=== PATIENT | female | born 1935 | race Caucasian/White ===

== ENCOUNTER 2016-08-08 21:57 | Inpatient (IN) | payer OTHER, MEDICARE ==
[~2016-08-08] VITALS: Ht 165.1 cm; Wt 65.8 kg
[~2016-08-08 21:57] MED LIST: KCL20 PO; LEVO75TA3 PO
[2016-08-08 22:00] VITALS: BP 151/67; PULSE 97; RESP 16; TEMP 98.2; O2SAT 97
--- NOTE | 2016-08-08 22:08 | PD ---
Physical Exam Date Seen by Provider: Aug 08, 2016 Time Seen by Provider: 22:04 Narrative 81 YOWF C/O N/V/D BLACK EMESIS AND STOOL. POS ABD PAIN. NO PEPTO. OTC GAVISCON NO DIZZINESS OR SYNCOPE. NO CP OR SOB VSS AWAITING BED PLACEMENT Data Data Last Documented VS Vital Signs Date Time Temp Pulse Resp B/P Pulse Ox O2 Delivery O2 Flow Rate FiO2 08/08/16 22:00 98.2 97 16 151/67 97 Room Air [facility] Medical Record Reviewed: Yes Supervised Visit with CASS: Yes Jorge Chase Aug 08, 2016 22:08
[2016-08-08 22:24] VITALS: BP 145/67; PULSE 89; RESP 18; O2SAT 98
[2016-08-08] MEDS ORDERED: LEVO75TA3 PO (22:26)
[2016-08-08] MEDS ORDERED: HYDR-3583 PO (22:26)
[2016-08-08] MEDS ORDERED: SODIUM CHLORIDE 0.9% FLUSH 10 ML FLUSH IVF PRN (22:30)
[2016-08-08] MEDS ORDERED: PANTOPRAZOLE INJ 80 MG in SODIUM CHLORIDE 0.9% INJ 35 ML IV ONE (22:30)
[2016-08-08] MEDS ORDERED: ONDANSETRON HCL 4 MG/2 ML VIAL IV ONE (22:30)
--- NOTE | 2016-08-08 22:34 | PD ---
HPI Chief Complaint: GI Complaint Time Seen by Provider: 22:30 Travel History International Travel<30 days: No Contact w/Intl Traveler<30days: No Traveled to known affect area: No History of Present Illness HPI Patient with history of pancreatic cancer comes in for evaluation of black emesis and black stools ongoing over the past 4 days. Patient reports she had vomiting 1-2 times a day. Reports her stools are normal other than they're black. Patient states she tried contacting her oncologist, but has not heard back yet. Patient reports that her abdomen is becoming more distended and uncomfortable as well as the pain in her back. Patient states that her pain medication hydrocodone is not helping. Patient denies any chest pain, shortness of breath, dizziness, fevers, or being on any blood thinners. PFSH Past Medical History Cancer: Yes (PANCREATIC) Chemotherapy: Yes Thyroid Disease: Yes Tetanus Vaccination: Unknown Influenza Vaccination: No Menopausal: Yes Past Surgical History Cholecystectomy: Yes Joint Replacement: Yes (BILATERAL KNEE) Social History Alcohol Use: No Tobacco Use: No Substance Use: No Allergies-Medications (Allergen,Severity, Reaction): Coded Allergies: No Known Allergies (Unverified , 08/08/16) Reported Meds & Prescriptions Reported Meds & Active Scripts Active Reported Hydrocodone-Acetaminophen 10-325 mg Tab 1 Tab PO TID PRN Levothyroxine (Levothyroxine Sodium) 75 Mcg Tab 75 Mcg PO DAILY Review of Systems Except as stated in HPI: all other systems reviewed are Neg Physical Exam Narrative GENERAL: Well-developed, well nourished, in no acute distress, and non-ill appearing. SKIN: Focused skin assessment warm and dry. HEAD: Atraumatic. Normocephalic. EYES: Pupils equal and round. EOMI. No scleral icterus. No injection or drainage. ENT: No nasal bleeding or discharge. Mucous membranes pink and moist. NECK: Trachea midline. Supple. No nuclear rigidity. CARDIOVASCULAR: Regular rate and rhythm. No murmur appreciated. RESPIRATORY: No accessory muscle use. No respiratory distress. Clear to auscultation. Breath sounds equal bilaterally. GASTROINTESTINAL: Abdomen soft, tender right upper quadrant and epigastric, distended. Hepatic and splenic margins not palpable. Hypoactive bowel sounds 4. No pulsatile mass. MUSCULOSKELETAL: No obvious deformities. No clubbing. No cyanosis. No edema. Full range of motion. NEUROLOGICAL: Awake and alert. No obvious cranial nerve deficits. Motor grossly within normal limits. Normal speech. PSYCHIATRIC: Appropriate mood and affect; insight and judgment normal. Data Data Last Documented VS Vital Signs Date Time Temp Pulse Resp B/P Pulse Ox O2 Delivery O2 Flow Rate FiO2 08/08/16 22:24 89 18 145/67 98 Room Air 08/08/16 22:00 98.2 MDM Medical Decision Making Medical Screen Exam Complete: Yes Emergency Medical Condition: Yes Differential Diagnosis GI bleed, metastatic disease, small bowel obstruction, ascites, other Narrative Course Patient was seen and exam. Patient signed out to Dr. Parmar at the end of my shift. Please see her documentation for final diagnosis and disposition. Perfecto Schwartz Aug 08, 2016 22:34
--- NOTE | 2016-08-08 22:44 | PD ---
Data Data Last Documented VS Vital Signs Date Time Temp Pulse Resp B/P Pulse Ox O2 Delivery O2 Flow Rate FiO2 08/09/16 02:55 89 16 114/84 96 Room Air 08/08/16 22:00 98.2 Orders Complete Blood Count With Diff (08/08/16 22:27) Comprehensive Metabolic Panel (08/08/16 22:27) Lipase (08/08/16 22:27) Prothrombin Time / Inr (Pt) (08/08/16 22:27) Act Partial Throm Time (Ptt) (08/08/16 22:27) Urinalysis - C+S If Indicated (08/08/16 22:27) Type And Screen (08/08/16 22:27) Red Blood Cells (Rbc) (08/08/16 22:27) Ecg Monitoring (08/08/16 22:27) Iv Access Insert/Monitor (08/08/16 22:27) Oximetry (08/08/16 22:27) Sodium Chloride 0.9% Flush (Ns Flush) (08/08/16 22:30) Pantoprazole Inj (Protonix Inj) (08/08/16 22:30) Pantoprazole Inj (Protonix Inj) (08/08/16 22:30) Lactic Acid Sepsis Protocol (08/08/16 22:27) Ondansetron Inj (Zofran Inj) (08/08/16 22:30) B-Type Natriuretic Peptide (08/08/16 22:32) Chest, Single Ap (08/08/16 22:32) Ct Abd/Pel W Iv Contrast(Rout) (08/08/16 22:32) Ckmb (Isoenzyme) Profile (08/08/16 22:30) Troponin I (08/08/16 22:30) Metoclopramide Inj (Reglan Inj) (08/08/16 23:45) Hydromorphone Pf Inj (Dilaudid Pf Inj) (08/08/16 23:45) Iohexol 350 Inj (Omnipaque 350 Inj) (08/09/16 00:14) Admit Order (Ed Use Only) (08/09/16 03:38) Labs Laboratory Tests Test 08/08/16 08/08/16 22:30 23:39 White Blood Count 6.3 TH/MM3 Red Blood Count 2.73 MIL/MM3 Hemoglobin 8.2 GM/DL Hematocrit 24.0 % Mean Corpuscular Volume 88.1 FL Mean Corpuscular Hemoglobin 29.9 PG Mean Corpuscular Hemoglobin 33.9 % Concent Red Cell Distribution Width 17.1 % Platelet Count 369 TH/MM3 Mean Platelet Volume 8.0 FL Neutrophils (%) (Auto) 75.7 % Lymphocytes (%) (Auto) 11.8 % Monocytes (%) (Auto) 11.5 % Eosinophils (%) (Auto) 0.6 % Basophils (%) (Auto) 0.4 % Neutrophils # (Auto) 4.8 TH/MM3 Lymphocytes # (Auto) 0.7 TH/MM3 Monocytes # (Auto) 0.7 TH/MM3 Eosinophils # (Auto) 0.0 TH/MM3 Basophils # (Auto) 0.0 TH/MM3 CBC Comment DIFF FINAL Differential Comment Prothrombin Time 12.7 SEC Prothromb Time International 1.1 RATIO Ratio Activated Partial 27.5 SEC Thromboplast Time Sodium Level 136 MEQ/L Potassium Level 3.4 MEQ/L Chloride Level 98 MEQ/L Carbon Dioxide Level 27.0 MEQ/L Anion Gap 11 MEQ/L Blood Urea Nitrogen 16 MG/DL Creatinine 0.52 MG/DL Estimat Glomerular Filtration 113 ML/MIN Rate Random Glucose 92 MG/DL Lactic Acid Level 1.2 mmol/L Calcium Level 8.0 MG/DL Total Bilirubin 0.7 MG/DL Aspartate Amino Transf 27 U/L (AST/SGOT) Alanine Aminotransferase 18 U/L (ALT/SGPT) Alkaline Phosphatase 273 U/L Total Creatine Kinase 36 U/L Troponin I LESS THAN 0.02 NG/ML Total Protein 6.3 GM/DL Albumin 2.4 GM/DL Lipase 77 U/L B-Type Natriuretic Peptide 124 PG/ML Blood Type A NEGATIVE A NEGATIVE Antibody Screen NEGATIVE Crossmatch Leukocyte-Reduced Red Blood Cells Blood Bank Comment [facility] Medical Record Reviewed: Yes Supervised Visit with CASS: No Interpretation(s) Last Impressions Chest X-Ray 08/08/162231 Signed Impressions: Service Date/Time: Monday, August 08, 2016 22:32 - CONCLUSION: Small left pleural effusion with left lower lobe atelectasis versus infiltrate. Jarad Ceja Jr., MD Abdomen/Pelvis CT 08/08/162231 Signed Impressions: Service Date/Time: Monday, August 08, 2016 23:59 - CONCLUSION: 1. Large pancreatic head mass. There is a common bile duct stent which is patent. Intrahepatic ductal dilatation with pneumobilia. I have no prior exams to account for any change following the stent placement. 2. Moderate amount of ascites. 3. Small left pleural effusion with associated atelectasis. 4. Large hiatal hernia. 5. Cardiomegaly. Jarad Ceja Jr., MD Narrative Course During the course of the patients emergency department visit, the patients history, examination, and differential diagnosis were reviewed with the patient. The patient had IV access obtained and blood work sent for analysis. The patient was placed on a media monitor with oximetry and blood pressure monitoring. The patient was initially seen by Gilbert. Please see his complete history and physical. The patient's case was checked out to me by him of the conclusion of his shift. The patient reportedly on Sunday began to have nausea and vomiting of black emesis twice a day. Since then she has also had normal consistency black stools. Her medical history is complicated by having pancreatic cancer that is continued to progress in spite of treatment. The patient was typed and crossmatched for blood administration if necessary. The patient was provided Protonix 80 IV followed by Protonix drip. The patients laboratory studies were reviewed and remarkable for white count 6.3, hemoglobin 8.2, platelets 369 with 75.7 neutrophils, monocytes 11.5, CMP is remarkable for potassium of 3.4, calcium 8.0, alkaline phosphatase 273, cardiac enzymes within normal limits, lipase 77, lactic acid 1.2, PT 12.7, PTT 27.5. Radiology studies were reviewed and remarkable for a chest x-ray that shows a small left pleural effusion with left lower lobe atelectasis, CT scan of the abdomen and pelvis shows a large pancreatic head mass there is a common bile duct stent just patent, intrahepatic ductal dilatation with pneumobilia is noted , moderate amount of ascites, small left pleural effusion with associated atelectasis, large hiatal hernia, cardiomegaly. The patient will be admitted to the hospital for evaluation and treatment regarding a GI bleed. The patients results were discussed with the patient, including the plan of care. I explained that further testing and/ or monitoring is indicated based on the patients history, examination, and/ or laboratory findings. Therefore, I recommended admission for additional evaluation. The patient expressed understanding and was agreeable with this plan. The patient was admitted to the hospital in guarded condition and [facility] Physician Communication Physician Communication The patient's case was discussed with Dr. Loyd who did agree to admit the patient for further evaluation and treatment at this time. Diagnosis Primary Impression: Gastrointestinal bleed Qualified Code: K92.2 - Gastrointestinal hemorrhage, unspecified gastrointestinal hemorrhage type Additional Impression: Pancreatic cancer Qualified Code: C25.9 - Malignant neoplasm of pancreas, unspecified location of malignancy Admitting Information Admitting Physician Requests: Marie Matthew MD Aug 08, 2016 22:44
[2016-08-08 22:55] LABS: AUTOMATED NEUTROPHIL # 4.8 TH/MM3 (1.8-7.7); BASOPHIL % 0.4 % (0.0-2.0); EOSINOPHIL % 0.6 % (0.0-4.0); HEMO FLAGS DIFF FINAL; LYMPH % 11.8 % (9.0-44.0); LYMPHOCYTE # 0.7 TH/MM3 (1.0-4.8); MEAN CELL VOLUME 88.1 FL (80.0-100.0); MEAN CORPUSCULAR HEMOGLOBIN 29.9 PG (27.0-34.0); MEAN CORPUSCULAR HGB CONC 33.9 % (32.0-36.0); MONO % 11.5 % (0.0-8.0); NEUT % 75.7 % (16.0-70.0); PLATELET COUNT 369 TH/MM3 (150-450); RED BLOOD COUNT 2.73 MIL/MM3 (4.00-5.30); RED CELL DISTRIBUTION WIDTH 17.1 % (11.6-17.2); WHITE BLOOD COUNT 6.3 TH/MM3 (4.0-11.0)
[2016-08-08 23:00] VITALS: BP 139/65; PULSE 76; RESP 16; O2SAT 96
--- NOTE | 2016-08-08 23:02 | RADRPT ---
EXAM DATE/TIME: 08/08/2016 22:32 [facility] COMPARISON: No previous studies available for comparison. INDICATIONS : Nausea, vomiting. MEDICAL HISTORY : Carcinoma, pancreas. SURGICAL HISTORY : Cholecystectomy. ENCOUNTER: Initial ACUITY: 4 - 6 days PAIN SCORE: 0/10 LOCATION: Bilateral chest FINDINGS: A single portable frontal view of the chest shows a small left pleural effusion and left lower lobe c onsolidation. Right lung is clear. No right effusion. Heart is normal in size. Bony structures are un remarkable. CONCLUSION: Small left pleural effusion with left lower lobe atelectasis versus infiltrate. Jarad Ceja Jr., MD on August 08, 2016 at 23:00 Board Certified Radiologist. This report was verified electronically.
[2016-08-08 23:17] LABS: ALT (GPT) 18 U/L (10-53); ANION GAP 11 MEQ/L (5-15); AST (GOT) 27 U/L (15-37); BLOOD UREA NITROGEN 16 MG/DL (7-18); CHLORIDE 98 MEQ/L (98-107); GLOMERULAR FILTRATION RATE 113 ML/MIN (>89); POTASSIUM 3.4 MEQ/L (3.5-5.1); SODIUM (NA) 136 MEQ/L (136-145)
[2016-08-08 23:18] LABS: APTT (PATIENT) 27.5 SEC (24.3-30.1); INTERNATIONAL NORMALIZED RATIO 1.1 RATIO; PROTHROMBIN TIME - PATIENT 12.7 SEC (9.8-11.6)
[2016-08-08] MEDS: PANTOPRAZOLE INJ 80 MG in SODIUM CHLORIDE 0.9% INJ 100 ML IV SCH (23:18)
[2016-08-08 23:20] LABS: ALKALINE PHOSPHATASE 273 U/L (45-117); TOTAL BILIRUBIN ADULT 0.7 MG/DL (0.2-1.0)
[2016-08-08 23:28] LABS: CREATINE KINASE 36 U/L (26-192)
[2016-08-08] MEDS ORDERED: HYDROmorphone HCL PF 1 MG/ML VIAL IV PUSH ONE (23:45)
[2016-08-08] MEDS ORDERED: METOCLOPRAMIDE HCL 10 MG/2 ML VIAL IV PUSH ONE (23:45)
[2016-08-09] VITALS (9 sets, daily range): BP systolic 112–148; BP diastolic 55–86; PULSE 83–108; RESP 16–18; TEMP 96.4–98.4; O2SAT 94–98
[2016-08-09] MEDS ORDERED: IOHEXOL 350 MG/ML 10 ML VIAL (for RAD DIAG) IV ONE (00:14)
--- NOTE | 2016-08-09 00:37 | RADRPT ---
EXAM DATE/TIME: 08/08/2016 23:59 [facility] COMPARISON: No previous studies available for comparison. INDICATIONS : Black emesis and black stool for four days. IV CONTRAST: 90 cc Omnipaque 350 (iohexol) IV ORAL CONTRAST: No oral contrast ingested. RADIATION DOSE: 10.08 CTDIvol (mGy) MEDICAL HISTORY : Carcinoma, pancreas. SURGICAL HISTORY : None. ENCOUNTER: Initial ACUITY: 4 - 6 days PAIN SCALE: 4/10 LOCATION: Abdomen. TECHNIQUE: Volumetric scanning of the abdomen and pelvis was performed. Using automated exposure control and ad justment of the mA and/or kV according to patient size, radiation dose was kept as low as reasonably achievable to obtain optimal diagnostic quality images. FINDINGS: LOWER LUNGS: A small left pleural effusion with associated passive atelectasis. No effusion on the right. The hear t is enlarged. A moderate size hiatal hernia noted. LIVER: Diffuse intrahepatic and extrahepatic biliary dilatation. There is diffuse pneumobilia. A metallic st ent is seen within the common bile duct. There is air throughout the majority of the stent consistent with patency. No hepatic mass observed. 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 A moderate amount of ascites is seen. SPLEEN: Normal size without lesion. PANCREAS: The pancreatic head is enlarged and abnormal in density. Pancreatic duct is dilated in the tail is at rophic. Exact measurement of the pancreatic head mass are difficult due to obscuration of its borders . It is felt to measure approximately 5 x 3.5 cm. KIDNEYS: Normal in size and shape. There is no mass, stone or hydronephrosis. ADRENAL GLANDS: Within normal limits. VASCULAR: There is no aortic aneurysm. BOWEL/MESENTERY: The stomach, small bowel, and colon demonstrate no acute abnormality. There is no free intraperitone al air or fluid. ABDOMINAL WALL: Within normal limits. RETROPERITONEUM: There is no lymphadenopathy. BLADDER: No wall thickening or mass. REPRODUCTIVE: Within normal limits. INGUINAL: There is no lymphadenopathy or hernia. MUSCULOSKELETAL: Within normal limits for patient age. CONCLUSION: 1. Large pancreatic head mass. There is a common bile duct stent which is patent. Intrahepatic ductal dilatation with pneumobilia. I have no prior exams to account for any change following the stent bettina cement. 2. Moderate amount of ascites. 3. Small left pleural effusion with associated atelectasis. 4. Large hiatal hernia. 5. Cardiomegaly. Jarad Ceja Jr., MD on August 09, 2016 at 0:31 Board Certified Radiologist. This report was verified electronically.
[2016-08-09] MEDS ORDERED: POTASSIUM CHLORIDE INJ 20 MEQ in SODIUM CHLOR 0.9% 1000 ML INJ 1,000 ML IV SCH (03:45)
[2016-08-09] MEDS: NS + KCL 20 MEQ INJ 1,000 ML IV SCH ×2 (04:20→16:40)
[2016-08-09 04:29] LABS: HEMATOCRIT 21.2 % (35.0-46.0)
--- NOTE | 2016-08-09 04:55 | HHI.HP ---
[facility] Service [facility] Primary Care Physician Aleisha Saavedra MD Admission Diagnosis GI Bleed Diagnoses: (1) Nausea and vomiting (2) Abdominal pain (3) Gastrointestinal bleed Chief Complaint: Abdominal pain with nausea and vomiting and black emesis Travel History International Travel<30 Days: No Contact w/Intl Traveler <30 Da: No Traveled to Known Affected Are: No History of Present Illness Mrs. Garner is an 81-year-old female with a history of hypothyroidism and pancreatic cancer who presented to the emergency room for 08/24/16 complaining of abdominal pain as well as nausea and vomiting with black emesis. The patient is seen in the emergency room. She states that she started to have increasing abdominal pain with nausea and vomiting and black emesis starting on Sunday. She states that her PRN hydrocodone usually relieves her pain but stopped working. She states the pain is across her upper abdomen and radiates to her back. Her last episode of emesis was last night. She has never had symptoms like this previously. She also reports bowel movements as black in color 2 and they changed in consistency to loose yesterday. She denies any associated dizziness, chest pain, shortness of breath, or lightheadedness. She denies any history of gastric ulcers. She sees Dr. Mcrae for pancreatic cancer that was diagnosed in 2013. She had been previously seen by Dr. Kilgore. Her pancreatic cancer was first diagnosed in 2013 and she is had a laparoscopy - Whipple procedure was attempted but aborted because of advanced disease found during laparoscopy. She has had chemotherapy and radiation with her last chemotherapy in 2013 and her last radiation treatment in 2014 She reports a history of chills following blood transfusion in the past . Review of Systems Except as stated in HPI: all other systems reviewed are Neg Past Family Social History Past Medical History Hypothyroidism Pancreatic cancer . Past Surgical History ERCP with biliary stenting 2013 Cataract removal 2009 Bilateral knee surgery 2005 Laparoscopy 2014 for pancreatic cancer - Whipple procedure was terminated due to advanced cancer seen during laparoscopy . Reported Medications Reported Meds & Active Scripts Active Reported Hydrocodone-Acetaminophen 10-325 mg Tab 1 Tab PO TID PRN Levothyroxine (Levothyroxine Sodium) 75 Mcg Tab 75 Mcg PO DAILY . Allergies: Coded Allergies: No Known Allergies (Unverified , 08/08/16) Active Ordered Medications Current Medications Sodium Chloride 2 ml 2 ml UNSCH PRN IVF FLUSH AFTER USING IV ACCESS Last administered on 08/08/16 23:12; Start 08/08/16 at 22:30 Pantoprazole Sodium 80 mg/ Sodium Chloride 35 ml @ 420 mls/hr ONCE ONCE IV Last administered on 08/08/16 23:11; Start 08/08/16 at 22:30; Stop 08/08/16 at 22: 34; Status DC Pantoprazole Sodium/Sodium Chloride (Protonix Inj/NS Inj) 100 ml @ 10 mls/hr Q10H IV Last administered on 08/08/16 23:18; Start 08/08/16 at 22:30 Ondansetron HCl (Zofran Inj) 4 mg ONCE ONCE IV Last administered on 08/08/16 23:11; Start 08/08/16 at 22:30; Stop 08/08/16 at 22:31; Status DC Metoclopramide HCl (Reglan Inj) 5 mg ONCE ONCE IV PUSH Last administered on 23:49; Start 08/08/16 at 23:45; Stop 08/08/16 at 23:46; Status DC Hydromorphone HCl (Dilaudid Pf Inj) 0.2 mg ONCE ONCE IV PUSH Last administered on 08/08/16 23:49; Start 08/08/16 at 23:45; Stop 08/08/16 at 23:46; Status DC Iohexol 90 ml 90 ml STK-MED ONCE IV Last administered on 08/09/16 00:14; Start 08/09/16 at 00:14; Stop 08/09/16 at 00:15; Status DC Potassium Chloride 20 meq/ Sodium Chloride 1,010 ml @ 75 mls/hr [id number] IV ; Start 08/09/16 at 03:45; Stop 08/09/16 at 05:59 Potassium Chloride/Sodium Chloride (NS + KCl 20 Meq Inj) 1,000 ml @ 75 mls/hr [id number] IV Last administered on 08/09/16 04:20; Start 08/09/16 at 06:00 Hydromorphone HCl (Dilaudid Pf Inj) 0.5 mg Q4H PRN IV PUSH PAIN; Start 08/09/16 at 04:30 . Family History Father age 78 of bone cancer . Social History Tobacco: remote smoking in her 20's . Physical Exam Vital Signs Vital Signs Date Time Temp Pulse Resp B/P Pulse Ox O2 Delivery O2 Flow Rate FiO2 08/09/16 04:00 83 16 132/60 94 Room Air 08/09/16 02:55 89 16 114/84 96 Room Air 08/08/16 23:00 76 16 139/65 96 Room Air 08/08/16 22:24 89 18 145/67 98 Room Air 08/08/16 22:00 98.2 97 16 151/67 97 Room Air Physical Exam GENERAL: This is a thin, pleasant, elderly female patient, in no apparent distress. SKIN: No rashes, ecchymoses or lesions. Cool and dry. HEAD: Atraumatic. Normocephalic. EYES: No scleral icterus. No injection or drainage. ENT: Nose without bleeding, purulent drainage. NECK: Trachea midline. No JVD or lymphadenopathy. CARDIOVASCULAR: Regular rate and rhythm without murmurs, gallops, or rubs. Patient has 2+ ankle edema, pitting RESPIRATORY: Clear to auscultation. Breath sounds equal bilaterally. No wheezes , rales, or rhonchi. GASTROINTESTINAL: Abdominal pain with palpation, epigastric mass palpable, nondistended. No guarding. MUSCULOSKELETAL: Extremities without clubbing, cyanosis, or edema. No calf tenderness. NEUROLOGICAL: Awake and alert. Motor and sensory grossly within normal limits. Normal speech. . Laboratory Laboratory Tests Test 08/08/16 08/08/16 08/09/16 22:30 23:39 04:10 White Blood Count 6.3 Red Blood Count 2.73 Hemoglobin 8.2 7.2 Hematocrit 24.0 21.2 Mean Corpuscular Volume 88.1 Mean Corpuscular Hemoglobin 29.9 Mean Corpuscular Hemoglobin 33.9 Concent Red Cell Distribution Width 17.1 Platelet Count 369 Mean Platelet Volume 8.0 Neutrophils (%) (Auto) 75.7 Lymphocytes (%) (Auto) 11.8 Monocytes (%) (Auto) 11.5 Eosinophils (%) (Auto) 0.6 Basophils (%) (Auto) 0.4 Neutrophils # (Auto) 4.8 Lymphocytes # (Auto) 0.7 Monocytes # (Auto) 0.7 Eosinophils # (Auto) 0.0 Basophils # (Auto) 0.0 CBC Comment DIFF FINAL Differential Comment Prothrombin Time 12.7 Prothromb Time International 1.1 Ratio Activated Partial 27.5 Thromboplast Time Sodium Level 136 Potassium Level 3.4 Chloride Level 98 Carbon Dioxide Level 27.0 Anion Gap 11 Blood Urea Nitrogen 16 Creatinine 0.52 Estimat Glomerular Filtration 113 Rate Random Glucose 92 Lactic Acid Level 1.2 Calcium Level 8.0 Total Bilirubin 0.7 Aspartate Amino Transf 27 (AST/SGOT) Alanine Aminotransferase 18 (ALT/SGPT) Alkaline Phosphatase 273 Total Creatine Kinase 36 Troponin I LESS THAN 0.02 Total Protein 6.3 Albumin 2.4 Lipase 77 B-Type Natriuretic Peptide 124 Blood Type A NEGATIVE A NEGATIVE Antibody Screen NEGATIVE Crossmatch Leukocyte-Reduced Red Blood Cells Blood Bank Comment Result Diagram: 08/09/16 0410 08/08/162229 Imaging Last Impressions Chest X-Ray 08/08/162231 Signed Impressions: Service Date/Time: Monday, August 08, 2016 22:32 - CONCLUSION: Small left pleural effusion with left lower lobe atelectasis versus infiltrate. Jarad Ceja Jr., MD Abdomen/Pelvis CT 08/08/162231 Signed Impressions: Service Date/Time: Monday, August 08, 2016 23:59 - CONCLUSION: 1. Large pancreatic head mass. There is a common bile duct stent which is patent. Intrahepatic ductal dilatation with pneumobilia. I have no prior exams to account for any change following the stent placement. 2. Moderate amount of ascites. 3. Small left pleural effusion with associated atelectasis. 4. Large hiatal hernia. 5. Cardiomegaly. Jarad Ceja Jr., MD . Assessment and Plan Problem List: (1) Gastrointestinal bleed ICD Code: K92.2 Status: Acute (2) Abdominal pain ICD Code: R10.9 Status: Acute (3) Nausea and vomiting ICD Code: R11.2 Status: Acute (4) Pancreatic cancer ICD Code: C25.9 Status: Acute Assessment and Plan Mrs. Garner is an 81-year-old female with a history of hypothyroidism and pancreatic cancer who presented to the emergency room for 08/24/16 complaining of abdominal pain as well as nausea and vomiting with black emesis. Suspected GI bleed - Protonix drip to reduce gastric acid - Consult gastroenterology - Serial H&H every 6 hours - follow trends - Monitor vital signs every 4 hours to monitor hemodynamic stability - Hemoglobin was 8.2 on admission last night and 7.2 this morning; transfuse 1 unit of packed red blood cells with premedication with Tylenol and Benadryl Abdominal pain Pancreatic cancer - Dilaudid 0.5 mg IV every 4 hours as needed for pain Nausea and vomiting - IV fluid hydration with normal saline + 20 mEq of potassium chloride at 75 cc per hour - Zofran 4 mg IV every 8 hours as needed for nausea and vomiting DVT prophylaxis - SCDs Written by Brooklynn Sheth, acting as scribe for Dr. Loyd on 08/09/16 at 04:51. patient was seen and examined today. 81 y/o female with history of pancreatic cancer who presented with coffee- ground emesis and abdominal pain. noted a drop in H/H. started on PPI- will transfuse with PRBC and monitor the H/H closely. consulted GI. continue with pain control. Discussed Condition With ER physician, patient, and patient's . Physician Certification 2 Midnight Certification Type: Admission for Inpatient Services Order for Inpatient Services The services are ordered in accordance with Medicare regulations or non- Medicare payer requirements, as applicable. In the case of services not specified as inpatient-only, they are appropriately provided as inpatient services in accordance with the 2-midnight benchmark. Estimated LOS (days): 3 days is the estimated time the patient will need to remain in the hospital, assuming treatment plan goals are met and no additional complications. Post-Hospital Plan: Not yet determined Problem Qualifiers (1) Gastrointestinal bleed: Qualified Code: K92.2 - Gastrointestinal hemorrhage, unspecified gastrointestinal hemorrhage type (2) Pancreatic cancer: Qualified Code: C25.9 - Malignant neoplasm of pancreas, unspecified location of malignancy Brooklynn Sheth Aug 09, 2016 04:55 Amelie Loyd MD Aug 09, 2016 05:33
[2016-08-09] MEDS ORDERED: diphenhydrAMINE HCL 25 MG CAP PO ONE (05:00)
[2016-08-09] MEDS: HYDROmorphone HCL PF 1 MG/ML VIAL IV PUSH PRN ×4 (05:00→23:51)
[2016-08-09] MEDS ORDERED: ACETAMINOPHEN 325 MG TAB PO ONE (05:00)
--- NOTE | 2016-08-09 09:51 | HHI.PR ---
Addendum to Inpatient Note Addendum Reason: Additional Documentation Additional Information Pt evaluated today. Complains of pain in abdomen 5/10 and would like some pain meds. Denies any new episode of dark stools or bleed. no nausea or vomiting this morning. family at bedside. concerned about pain and hope she can get something soon abdominal exam, soft tender in epigastric region and mass is palpated in that area, non tender in the lower quadrants. no guarding or rebound A/P Suspected GI bleed - on Protonix drip. Gastroenterology consult in place. - Serial H&H every 6 hours - follow trends s/p 1 unit PRBC - Monitor vital signs every 4 hours to monitor hemodynamic stability Abdominal pain Pancreatic cancer - Dilaudid 0.5 mg IV every 4 hours as needed for breakthrough pain and I have restarted her home pain med regimen Nausea and vomiting - resolved. continue IV fluid hydration with normal saline w potassium chloride at 75 cc per hour - Zofran 4 mg IV every 8 hours as needed for nausea and vomiting DVT prophylaxis - SCDs, avoid chemical prophylaxis due to GI bleed Giselle Schneider MD Aug 09, 2016 09:51
[2016-08-09] MEDS ORDERED: DOCUSATE SODIUM 50 MG/SENNA 8.6 MG TAB PO PRN (10:00)
[2016-08-09] MEDS: PANTOPRAZOLE INJ 80 MG in SODIUM CHLORIDE 0.9% INJ 100 ML IV SCH ×2 (10:20→20:41)
[2016-08-09] MEDS: ACETAMINOPHEN/HYDROcodone 325 MG/10 MG TAB PO PRN ×2 (10:31→18:23)
[2016-08-09] MEDS: ONDANSETRON HCL 4 MG/2 ML VIAL IV PUSH PRN (10:33)
[2016-08-09 11:18] LABS: HEMATOCRIT 30.1 % (35.0-46.0)
--- NOTE | 2016-08-09 15:46 | PD.CONS ---
HPI History of Present Illness This is a 81 year old [lady] who came to the hospital yesterday after having multilple episodes of nausea and coffee ground emesis in the last week. She is unsure of when it started but says it is in the last week. She has never experienced this before. She has not vomited today and is not nauseous at this time. She has some RUQ and epigastric pain. She has had black tarry stools in the last week as well. She has pancreatic cancer, s/p unsuccessful whipple. She said she has [CBD] stent in place, placed by a clinical informatics educator in [place]. She does not currently drink ETOH and denies any hx heavy drinking. She has never had an EGD or colonoscopy. (Gabby Montgomery) PFSH Past Medical History Hypothyroidism Pancreatic cancer . Past Surgical History ERCP with biliary stenting 2013 Cataract removal 2009 Bilateral knee surgery 2005 Laparoscopy 2014 for pancreatic cancer - Whipple procedure was terminated due to advanced cancer seen during laparoscopy . (Gabby Montgomery) Coded Allergies: No Known Allergies (Unverified , 08/08/16) Medications Current Medications Medications (Trade) Dose Ordered Sig/Estuardo Route PRN Reason Start Time Stop Time Status Last Admin Dose Admin Sodium Chloride 2 ml 2 ml UNSCH PRN IVF FLUSH AFTER USING IV ACCESS 08/08/16 22:30 08/08/16 23:12 Pantoprazole Sodium 80 mg/ Sodium Chloride 100 ml @ 10 mls/hr Q10H IV 08/08/16 22:30 08/09/16 10:20 Potassium Chloride/Sodium Chloride (NS + KCl 20 Meq Inj) 1,000 ml @ 75 mls/hr [id number] IV 08/09/16 06:00 08/09/16 04:20 Hydromorphone HCl (Dilaudid Pf Inj) 0.5 mg Q4H PRN IV PUSH BREAKTHROUGH PAIN 08/09/16 04:30 08/09/16 15:15 Ondansetron HCl (Zofran Inj) 4 mg Q8HR PRN IV PUSH NAUSEA 08/09/16 05:45 08/09/16 10:33 Acetaminophen/ Hydrocodone Bitart (Chandler 10-325 Mg) 1 tab TID PRN PO PAIN 1-10 08/09/16 10:00 08/09/16 10:31 Senna/Docusate Sodium (Tati-Colace) 1 tab BID PRN PO CONSTIPATION 08/09/16 10:00 Family History No family hx gastric or colon ca . Social History Rare ETOH and not recent. No current tobacco use. . (Gabby Montgomery) Review of Systems Constitutional: DENIES: Fever, Dizziness Eyes: DENIES: Blurred vision Ears, nose, mouth, throat: DENIES: Hearing loss Respiratory: DENIES: Cough, Wheezing Cardiovascular: COMPLAINS OF: Lower Extremity Edema, DENIES: Chest pain Gastrointestinal: COMPLAINS OF: Abdominal pain, Black stools, Nausea, Vomiting , Hematemesis, DENIES: Bloody stools, Constipation, Diarrhea Musculoskeletal: DENIES: Joint pain Integumentary: DENIES: Abnormal pigmentation Hematologic/lymphatic: DENIES: Bruising Neurologic: DENIES: Abnormal gait Psychiatric: DENIES: Confusion (Gabby Montgomery) GI Exam Vitals I&O Vital Signs Date Time Temp Pulse Resp B/P Pulse Ox O2 Delivery O2 Flow Rate FiO2 08/09/16 12:00 96.9 101 18 136/70 97 08/09/16 08:00 96.4 91 18 130/68 98 08/09/16 07:05 96.7 98 16 148/86 98 08/09/16 06:20 96 16 114/55 94 Room Air 08/09/16 06:05 98.4 92 16 112/56 94 Room Air 08/09/16 04:00 83 16 132/60 94 Room Air 08/09/16 02:55 89 16 114/84 96 Room Air 08/08/16 23:00 76 16 139/65 96 Room Air 08/08/16 22:24 89 18 145/67 98 Room Air 08/08/16 22:00 98.2 97 16 151/67 97 Room Air I/O 08/08/16 08/08/16 08/08/16 08/09/16 08/09/16 08/09/16 07:00 15:00 23:00 07:00 15:00 23:00 Intake Total 804 ml Balance 804 ml Intake IV Total 804 ml Imaging Last Impressions Chest X-Ray 08/08/16 7372 Signed Impressions: Service Date/Time: Monday, August 08, 2016 22:32 - CONCLUSION: Small left pleural effusion with left lower lobe atelectasis versus infiltrate. Jarad Ceja Jr., MD Abdomen/Pelvis CT 08/08/164 Signed Impressions: Service Date/Time: Monday, August 08, 2016 23:59 - CONCLUSION: 1. Large pancreatic head mass. There is a common bile duct stent which is patent. Intrahepatic ductal dilatation with pneumobilia. I have no prior exams to account for any change following the stent placement. 2. Moderate amount of ascites. 3. Small left pleural effusion with associated atelectasis. 4. Large hiatal hernia. 5. Cardiomegaly. Jarad Ceja Jr., MD Laboratory Test 08/08/16 08/08/16 08/09/16 08/09/16 22:30 23:39 04:10 11:04 White Blood Count 6.3 TH/MM3 Red Blood Count 2.73 MIL/MM3 Hemoglobin 8.2 GM/DL 7.2 GM/DL 9.8 GM/DL Hematocrit 24.0 % 21.2 % 30.1 % Mean Corpuscular Volume 88.1 FL Mean Corpuscular Hemoglobin 29.9 PG Mean Corpuscular Hemoglobin 33.9 % Concent Red Cell Distribution Width 17.1 % Platelet Count 369 TH/MM3 Mean Platelet Volume 8.0 FL Neutrophils (%) (Auto) 75.7 % Lymphocytes (%) (Auto) 11.8 % Monocytes (%) (Auto) 11.5 % Eosinophils (%) (Auto) 0.6 % Basophils (%) (Auto) 0.4 % Neutrophils # (Auto) 4.8 TH/MM3 Lymphocytes # (Auto) 0.7 TH/MM3 Monocytes # (Auto) 0.7 TH/MM3 Eosinophils # (Auto) 0.0 TH/MM3 Basophils # (Auto) 0.0 TH/MM3 CBC Comment DIFF FINAL Differential Comment Prothrombin Time 12.7 SEC Prothromb Time International 1.1 RATIO Ratio Activated Partial 27.5 SEC Thromboplast Time Sodium Level 136 MEQ/L Potassium Level 3.4 MEQ/L Chloride Level 98 MEQ/L Carbon Dioxide Level 27.0 MEQ/L Anion Gap 11 MEQ/L Blood Urea Nitrogen 16 MG/DL Creatinine 0.52 MG/DL Estimat Glomerular Filtration 113 ML/MIN Rate Random Glucose 92 MG/DL Lactic Acid Level 1.2 mmol/L Calcium Level 8.0 MG/DL Total Bilirubin 0.7 MG/DL Aspartate Amino Transf 27 U/L (AST/SGOT) Alanine Aminotransferase 18 U/L (ALT/SGPT) Alkaline Phosphatase 273 U/L Total Creatine Kinase 36 U/L Troponin I LESS THAN 0.02 NG/ML Total Protein 6.3 GM/DL Albumin 2.4 GM/DL Lipase 77 U/L B-Type Natriuretic Peptide 124 PG/ML Blood Type A NEGATIVE A NEGATIVE Antibody Screen NEGATIVE Crossmatch Leukocyte-Reduced Red Blood Cells Blood Bank Comment Physical Examination HEENT: EOMI; normocephalic; atraumatic; no jaundice. NECK: Neck is supple, no JVD CHEST: Chest is clear to auscultation and percussion. CARDIAC: Regular rate and rhythm with no murmur gallop or rubs. ABDOMEN: firm, nondistended, mild epigastric TTP; no hepatosplenomegaly; bowel sounds are present in all four quadrants. EXTREMITIES: No clubbing, cyanosis. 1+ pitting edema BLE SKIN: Normal; no rash; no jaundice. VOLLEYBALL REFEREE: No focal deficits; alert and oriented times three. (Gabby Montgomery) Assessment and Plan Plan ASSESSMENT: - probably upper GI bleed, hematemesis with coffee ground appearance, melena. Never had EGD or colonoscopy. - Anemia. HH stable, Hgb 9.8 up from 8.2 yesterday - pancreatic cancer, epigastric and RUQ pain. CT 08/09/16 ----> large pancreatic head mass, CBD stent which is patent, intrahepatic ductal dilatation with pneumobilia, moderate ascites PLAN: - EGD tomorrow - clear liquids now - NPO after midnight - obtain consents - monitor HH - transfuse as necessary This pt was seen by myself and Dr. Jackson and this note is written on his behalf (Gabby Montgomery) Physician Comments Seen and examined with TAYLOR, EGD planned for tomorrow. Previous h/o pancreatic cancer noted. No signs of biliary obstruction. Monitor labs. Thank you (Fede Jackson MD) Gabby Montgomery Aug 09, 2016 15:46 Fede Jackson MD Aug 09, 2016 20:09
[2016-08-09 16:15] LABS: HEMATOCRIT 26.5 % (35.0-46.0)
[2016-08-09] MEDS ORDERED: diphenhydrAMINE HCL 50 MG CAP PO PRN (23:45)
[2016-08-09] MEDS: diphenhydrAMINE HCL 25 MG CAP PO PRN (23:51)
[2016-08-10] VITALS (7 sets, daily range): BP systolic 128–156; BP diastolic 70–86; PULSE 87–106; RESP 16–20; TEMP 96.7–98.3; O2SAT 91–97
[2016-08-10] MEDS: PANTOPRAZOLE INJ 80 MG in SODIUM CHLORIDE 0.9% INJ 100 ML IV SCH ×2 (04:37→21:34)
[2016-08-10] MEDS: ACETAMINOPHEN/HYDROcodone 325 MG/10 MG TAB PO PRN ×3 (04:38→23:31)
[2016-08-10] MEDS: NS + KCL 20 MEQ INJ 1,000 ML IV SCH ×2 (08:40→21:34)
--- NOTE | 2016-08-10 09:22 | HHI.PR ---
Subjective Remarks Patient complains of epigastric pain. She rates it a 4 out of 10 and would like pain medication for it. She denies any nausea or vomiting, chest pain or shortness of breath. Family at bedside. Objective Vitals Vital Signs Date Time Temp Pulse Resp B/P Pulse Ox O2 Delivery O2 Flow Rate FiO2 08/10/16 07:50 97.9 104 20 128/71 91 08/10/16 04:00 98.3 97 16 149/82 92 08/10/16 00:00 97.3 106 16 138/80 93 08/09/16 20:00 98.0 108 16 137/69 94 08/09/16 16:00 97.1 102 18 125/71 96 08/09/16 12:00 96.9 101 18 136/70 97 I/O 08/09/16 08/09/16 08/09/16 08/10/16 08/10/16 08/10/16 07:00 15:00 23:00 07:00 15:00 23:00 Intake Total 804 ml 252 ml 0 ml Balance 804 ml 252 ml 0 ml Intake Oral 252 ml 0 ml IV Total 804 ml # Voids 1 1 # Bowel Movements 0 0 Result Diagram: 08/09/16 1551 08/08/162229 Imaging Last Impressions Chest X-Ray 08/08/162231 Signed Impressions: Service Date/Time: Monday, August 08, 2016 22:32 - CONCLUSION: Small left pleural effusion with left lower lobe atelectasis versus infiltrate. Jarad Ceja Jr., MD Abdomen/Pelvis CT 08/08/162231 Signed Impressions: Service Date/Time: Monday, August 08, 2016 23:59 - CONCLUSION: 1. Large pancreatic head mass. There is a common bile duct stent which is patent. Intrahepatic ductal dilatation with pneumobilia. I have no prior exams to account for any change following the stent placement. 2. Moderate amount of ascites. 3. Small left pleural effusion with associated atelectasis. 4. Large hiatal hernia. 5. Cardiomegaly. Jarad Ceja Jr., MD Objective Remarks GENERAL: This is a thin, pleasant, elderly female patient, in no apparent distress. CARDIOVASCULAR: Regular rate and rhythm without murmurs. Patient has 2+ ankle edema, pitting RESPIRATORY: Clear to auscultation. Breath sounds equal bilaterally. No wheezes GASTROINTESTINAL: Abdominal pain with palpation, epigastric mass palpable, nondistended. No guarding. MUSCULOSKELETAL: Extremities w edema. No calf tenderness. NEUROLOGICAL: Awake and alert. Motor and sensory grossly within normal limits. Normal speech. A/P Problem List: (1) Gastrointestinal bleed ICD Code: K92.2 Status: Acute (2) Abdominal pain ICD Code: R10.9 Status: Acute (3) Nausea and vomiting ICD Code: R11.2 Status: Acute (4) Pancreatic cancer ICD Code: C25.9 Status: Acute Assessment and Plan A/P Suspected GI bleed - on Protonix drip. Gastroenterology following and taking her to EGD today. - s/p 1 unit PRBC H&H stable. monitor. - Monitor vital signs every 4 hours to monitor hemodynamic stability Abdominal pain Pancreatic cancer - Dilaudid 0.5 mg IV every 4 hours as needed for breakthrough pain and po pain meds available prn. Nausea and vomiting - resolved. continue IV fluid hydration with normal saline w potassium chloride at 75 cc per hour - Zofran 4 mg IV every 8 hours as needed for nausea and vomiting DVT prophylaxis - SCDs, avoid chemical prophylaxis due to GI bleed Discharge Planning d/c pending EGD findings and recs from GI Problem Qualifiers (1) Gastrointestinal bleed: Qualified Code: K92.2 - Gastrointestinal hemorrhage, unspecified gastrointestinal hemorrhage type (2) Pancreatic cancer: Qualified Code: C25.9 - Malignant neoplasm of pancreas, unspecified location of malignancy Giselle Schneider MD Aug 10, 2016 09:22
[2016-08-10] MEDS: HYDROmorphone HCL PF 1 MG/ML VIAL IV PUSH PRN ×2 (09:31→20:32)
[2016-08-10 10:18] LABS: HEMATOCRIT 26.4 % (35.0-46.0); REVIEW FLAG FINAL
[2016-08-10] MEDS ORDERED: PROPOFOL 200 MG/20 ML AMP IV ONE (12:27)
--- NOTE | 2016-08-10 12:39 | GIPROC ---
[facility] [address] [facility] [place] [address] EGD PROCEDURE REPORT EXAM DATE: 08/10/2016 PATIENT NAME: Yuliana Garner MR #: [id number] BIRTHDATE: 1935 ATTENDING: Fede Jackson MD ORDER #: [id number] RESEARCH NEUROPSYCHOLOGIST: Amanda Canada and Lori Caraballo STATUS: inpatient INDICATIONS: The patient is a 81 yr old female here for an EGD due to melena and acute post hemorrhagic anemia PROCEDURE PERFORMED: EGD, diagnostic MEDICATIONS: None and Per Anesthesia. TOPICAL ANESTHETIC: CONSENT: The patient understands the risks and benefits of the procedure and understands that these risks include, but are not limited to: sedation, allergic reaction, infection, perforation and/or bleeding. Alternative means of evaluation and treatment include, among others: physical exam, x-rays, and/or surgical intervention. The patient elects to proceed with this endoscopic procedure. medical equipment was checked for proper function. Hand hygiene and appropriate measures for infection prevention was taken. After the risks, benefits and alternatives of the procedure were thoroughly explained, Informed consent was verified, confirmed and timeout was successfully executed by the treatment team. The patient was anesthetized with topical anesthesia and the Pentax [id number] endoscope was introduced through the mouth and advanced to the second portion of the duodenum. Retroflexed views revealed no abnormalities The gastroscope was then slowly withdrawn and removed. DUODENUM: Significant inflammation and swelling with narrowing seen in the duoednum around the biliary stent at the ampulla. Fresh blood seen in this area but no clear site of bleeding. Beyond this area duosenum normal. Significant debris in stent. STOMACH: A small erosion was found on the greater curvature of the gastric antrum. ADVERSE EVENTS: There were no complications. IMPRESSIONS: 1. Significant inflammation and swelling with narrowing seen in the duoednum around the biliary stent at the ampulla. Fresh blood seen in this area but no clear site of bleeding. Beyond this area duosenum normal. Significant debris in stent 2. Small erosion was found on the greater curvature of the gastric antrum 3. Retroflexed views revealed no abnormalities RECOMMENDATIONS: 1. Continue PPI 2. Monitor labs, ? bleeding scan PATIENT CONDITION: stable DISPOSITION: Inpatient REPEAT EXAM: Return as needed for EGD Fede Jackson MD eSigned: Fede Jackson MD 08/10/2016 12:39 PM cc: PATIENT NAME: Yuliana Garner MR#: [id number]
[2016-08-10] MEDS: diphenhydrAMINE HCL 25 MG CAP PO PRN ×2 (21:34→23:31)
[2016-08-10] MEDS: ONDANSETRON HCL 4 MG/2 ML VIAL IV PUSH PRN (23:41)
[2016-08-11] VITALS: BP 148/79; PULSE 100; RESP 16; TEMP 98.9; O2SAT 96
[2016-08-11 04:07] VITALS: BP 115/67; PULSE 107; RESP 16; TEMP 97.4; O2SAT 93
[2016-08-11 07:26] LABS: AUTOMATED NEUTROPHIL # 3.9 TH/MM3 (1.8-7.7); BASOPHIL % 0.6 % (0.0-2.0); EOSINOPHIL # 0.1 TH/MM3 (0-0.4); EOSINOPHIL % 2.5 % (0.0-4.0); HEMO FLAGS DIFF FINAL; LYMPHOCYTE # 0.7 TH/MM3 (1.0-4.8); MEAN CORPUSCULAR HEMOGLOBIN 31.1 PG (27.0-34.0); MEAN CORPUSCULAR HGB CONC 34.6 % (32.0-36.0); MONO % 15.3 % (0.0-8.0); NEUT % 69.6 % (16.0-70.0); PLATELET COUNT 251 TH/MM3 (150-450); RED BLOOD COUNT 2.56 MIL/MM3 (4.00-5.30); RED CELL DISTRIBUTION WIDTH 17.1 % (11.6-17.2); WHITE BLOOD COUNT 5.7 TH/MM3 (4.0-11.0)
[2016-08-11 07:57] LABS: BICARBONATE 26.5 MEQ/L (21.0-32.0); MAGNESIUM 2.1 MG/DL (1.5-2.5); POTASSIUM 4.3 MEQ/L (3.5-5.1)
[2016-08-11 08:00] VITALS: BP 137/63; PULSE 94; RESP 18; TEMP 97.5; O2SAT 95
[2016-08-11] MEDS: PANTOPRAZOLE INJ 80 MG in SODIUM CHLORIDE 0.9% INJ 100 ML IV SCH ×2 (09:29→20:39)
[2016-08-11] MEDS: ACETAMINOPHEN/HYDROcodone 325 MG/7.5 MG TAB PO PRN (09:31)
--- NOTE | 2016-08-11 11:16 | HHI.PR ---
Subjective Remarks Follow-up coffee-ground vomiting. No further GI bleed. She is hungry requesting for more food currently on liquid diet Objective Vitals Vital Signs Date Time Temp Pulse Resp B/P Pulse Ox O2 Delivery O2 Flow Rate FiO2 08/11/16 08:00 97.5 94 18 137/63 95 08/11/16 04:07 97.4 107 16 115/67 93 08/11/16 00:00 98.9 100 16 148/79 96 08/10/16 20:00 97.4 97 16 151/82 94 08/10/16 15:50 96.9 88 20 156/86 94 08/10/16 13:37 96.7 87 20 134/70 97 08/10/16 12:55 95 16 150/71 99 08/10/16 12:45 94 16 143/69 96 08/10/16 12:35 98.0 95 16 137/69 100 I/O 08/10/16 08/10/16 08/10/16 08/11/16 08/11/16 08/11/16 07:00 15:00 23:00 07:00 15:00 23:00 Intake Total 0 ml 590 ml 200 ml 150 ml Output Total 2 ml Balance 0 ml 590 ml 200 ml 148 ml Intake Oral 0 ml 90 ml 200 ml 150 ml Other 500 ml Output Urine Total 2 ml # Voids 1 2 1 # Bowel Movements 0 0 0 0 Result Diagram: 08/11/16 0653 08/11/16652 Imaging Last Impressions Chest X-Ray 08/08/162231 Signed Impressions: Service Date/Time: Monday, August 08, 2016 22:32 - CONCLUSION: Small left pleural effusion with left lower lobe atelectasis versus infiltrate. Jarad Ceja Jr., MD Abdomen/Pelvis CT 08/08/162231 Signed Impressions: Service Date/Time: Monday, August 08, 2016 23:59 - CONCLUSION: 1. Large pancreatic head mass. There is a common bile duct stent which is patent. Intrahepatic ductal dilatation with pneumobilia. I have no prior exams to account for any change following the stent placement. 2. Moderate amount of ascites. 3. Small left pleural effusion with associated atelectasis. 4. Large hiatal hernia. 5. Cardiomegaly. Jarad Ceja Jr., MD Objective Remarks GENERAL: This is a thin, pleasant, elderly female patient, in no apparent distress. CARDIOVASCULAR: Regular rate and rhythm without murmurs. Patient has 2+ ankle edema, pitting RESPIRATORY: Clear to auscultation. Breath sounds equal bilaterally. No wheezes GASTROINTESTINAL: Abdominal pain with palpation, epigastric mass palpable, nondistended. No guarding. MUSCULOSKELETAL: Extremities w edema. No calf tenderness. NEUROLOGICAL: Awake and alert. Motor and sensory grossly within normal limits. Normal speech. Procedures EGD A/P Problem List: (1) Gastrointestinal bleed ICD Code: K92.2 Status: Acute (2) Abdominal pain ICD Code: R10.9 Status: Acute (3) Nausea and vomiting ICD Code: R11.2 Status: Acute (4) Pancreatic cancer ICD Code: C25.9 Status: Chronic Assessment and Plan Suspected GI bleed - on Protonix drip. Gastroenterology following status post EGD IMPRESSIONS: 1. Significant inflammation and swelling with narrowing seen in the duoednum around the biliary stent at the ampulla. Fresh blood seen in this area but no clear site of bleeding. Beyond this area duodenum normal. Significant debris in stent 2. Small erosion was found on the greater curvature of the gastric antrum 3. Retroflexed views revealed no abnormalities - s/p 1 unit PRBC H&H stable. monitor. - Monitor vital signs every 4 hours to monitor hemodynamic stability - Consider Bleeding scan Abdominal pain Pancreatic cancer - Dilaudid 0.5 mg IV every 4 hours as needed for breakthrough pain and po pain meds available prn. Nausea and vomiting - resolved. continue IV fluid hydration with normal saline w potassium chloride decreased to 55 cc an hour secondary to edema. Advance diet per GI - Zofran 4 mg IV every 8 hours as needed for nausea and vomiting DVT prophylaxis - SCDs, avoid chemical prophylaxis due to GI bleed Discharge Planning Discharge when cleared by GI Problem Qualifiers (1) Gastrointestinal bleed: Qualified Code: K92.2 - Gastrointestinal hemorrhage, unspecified gastrointestinal hemorrhage type (2) Pancreatic cancer: Qualified Code: C25.9 - Malignant neoplasm of pancreas, unspecified location of malignancy Lizandro Adler MD Aug 11, 2016 11:16
[2016-08-11] MEDS: LEVOTHYROXINE SODIUM 75 MCG TAB PO SCH (11:35)
[2016-08-11] MEDS: NS + KCL 20 MEQ INJ 1,000 ML IV SCH (11:36)
[2016-08-11 13:36] VITALS: BP 122/58; PULSE 79; RESP 18; TEMP 97.9; O2SAT 97
[2016-08-11] MEDS: ACETAMINOPHEN/HYDROcodone 325 MG/10 MG TAB PO PRN ×2 (15:17→20:38)
--- NOTE | 2016-08-11 15:39 | HHI.GIFU ---
Subjective Remarks Pt resting in bed comfortably. Says her pain is unchanged over all and helped with pain meds; nausea improved with protonix. No BM since admission, no hematemesis. (Gabby Montgomery) Objective Vitals I&O Vital Signs Date Time Temp Pulse Resp B/P Pulse Ox O2 Delivery O2 Flow Rate FiO2 08/11/16 13:36 97.9 79 18 122/58 97 08/11/16 08:00 97.5 94 18 137/63 95 08/11/16 04:07 97.4 107 16 115/67 93 08/11/16 00:00 98.9 100 16 148/79 96 08/10/16 20:00 97.4 97 16 151/82 94 08/10/16 15:50 96.9 88 20 156/86 94 I/O 08/10/16 08/10/16 08/10/16 08/11/16 08/11/16 08/11/16 07:00 15:00 23:00 07:00 15:00 23:00 Intake Total 0 ml 590 ml 200 ml 150 ml Output Total 2 ml Balance 0 ml 590 ml 200 ml 148 ml Intake Oral 0 ml 90 ml 200 ml 150 ml Other 500 ml Output Urine Total 2 ml # Voids 1 2 1 # Bowel Movements 0 0 0 0 Laboratory Laboratory Tests Test 08/11/16 06:53 White Blood Count 5.7 Red Blood Count 2.56 Hemoglobin 8.0 Hematocrit 23.0 Mean Corpuscular Volume 90.0 Mean Corpuscular Hemoglobin 31.1 Mean Corpuscular Hemoglobin 34.6 Concent Red Cell Distribution Width 17.1 Platelet Count 251 Mean Platelet Volume 7.7 Neutrophils (%) (Auto) 69.6 Lymphocytes (%) (Auto) 12.0 Monocytes (%) (Auto) 15.3 Eosinophils (%) (Auto) 2.5 Basophils (%) (Auto) 0.6 Neutrophils # (Auto) 3.9 Lymphocytes # (Auto) 0.7 Monocytes # (Auto) 0.9 Eosinophils # (Auto) 0.1 Basophils # (Auto) 0.0 CBC Comment DIFF FINAL Differential Comment Sodium Level 137 Potassium Level 4.3 Chloride Level 104 Carbon Dioxide Level 26.5 Anion Gap 7 Blood Urea Nitrogen 11 Creatinine 0.45 Estimat Glomerular Filtration 134 Rate Random Glucose 79 Calcium Level 7.7 Magnesium Level 2.1 Imaging Last Impressions Chest X-Ray 08/08/162231 Signed Impressions: Service Date/Time: Monday, August 08, 2016 22:32 - CONCLUSION: Small left pleural effusion with left lower lobe atelectasis versus infiltrate. Jarad Ceja Jr., MD Abdomen/Pelvis CT 08/08/162231 Signed Impressions: Service Date/Time: Monday, August 08, 2016 23:59 - CONCLUSION: 1. Large pancreatic head mass. There is a common bile duct stent which is patent. Intrahepatic ductal dilatation with pneumobilia. I have no prior exams to account for any change following the stent placement. 2. Moderate amount of ascites. 3. Small left pleural effusion with associated atelectasis. 4. Large hiatal hernia. 5. Cardiomegaly. Jarad Ceja Jr., MD Physical Exam HEENT: EOMI; normocephalic; atraumatic; no jaundice. NECK: Neck is supple, no JVD, no lymphadenopathy. CHEST: Chest is clear to auscultation and percussion. CARDIAC: Regular rate and rhythm with no murmur gallop or rubs. ABDOMEN: firm, nondistended, nontender; no hepatosplenomegaly; bowel sounds are present in all four quadrants. EXTREMITIES: No clubbing, cyanosis, BLE 1+ pitting edema. SKIN: Normal; no rash; no jaundice. SEISMIC PROSPECTING OBSERVER HELPER: No focal deficits; alert and oriented times three. (Gabby Montgomery) Assessment and Plan Plan ASSESSMENT: - probable upper GI bleed. No hematemesis today. s/p EGD 08/10/16 ----> significant inflammation, swelling with narrowing seen in duodenum around biliary stent at ampulla, fresh blood seen in this area but no clear site bleeding, significant debris in stent, small erosion greater curvature stomach. Consider GI bleeding scan if active bleeding. - Anemia. HH stable, Hgb 8.0, Hct 23.0 - pancreatic cancer, epigastric and RUQ pain. CT 08/09/16 ----> large pancreatic head mass, CBD stent which is patent, intrahepatic ductal dilatation with pneumobilia, moderate ascites PLAN: - IRMA - continue PPI - monitor HH - transfuse as necessary This pt was seen by myself and Dr. Jackson and this note is written on his behalf (Gabby Montgomery) Plan Pt with pancreatic cancer (dx in 2013), S/P Unsuccessful Whipple procedure- this was aborted after advanced disease was found during the laparoscopy. S/P Chemotherapy (last 2013) and radiation (2014). Pt now has permanent biliary stent (Placed at [facility]). S/P EGD 1. Significant inflammation and swelling with narrowing seen in the duodenum around the biliary stent at the ampulla. Fresh blood seen in this area but no clear site of bleeding. Beyond this area duodenum normal. Significant debris in stent. Will need to follow up at [facility] for further evaluation and treatment as outpatient (known to them). If no active bleeding, okay to d/c home. (Korina Ceja) Physician Comments Seen and examined with TAYLOR, no bleeding. Discussed referral to tertiary center for stent cleansing/replacement. Current stent looked very crudy and almost clogged up.In my opinion be better to have this done at Tertiary center. Discussed this with daughter and . This to be done as outpatient. Remains at high risk for rebleeding form the pancreatic cancer. Can dc home tomorrow if no further bleeding. Thank you (Fede Jackson MD) Gabby Montgomery Aug 11, 2016 15:39 Korina Ceja Aug 11, 2016 15:49 Fede Jackson MD Aug 11, 2016 19:15
[2016-08-11] MEDS ORDERED: PREV30CA11 PO (15:44)
--- NOTE | 2016-08-11 15:45 | HHI.DCPOC ---
Discharge Care Plan Diagnosis: (1) Gastrointestinal bleed (2) Pancreatic cancer (3) Nausea and vomiting (4) Abdominal pain Your Health Problems Are: Difficulty with ADL Exercise Tolerance Goals to Promote Your Health * To prevent worsening of your condition and complications * To maintain your health at the optimal level Directions to Meet Your Goals Take your medications as prescribed Follow your dietary instruction Follow activity as directed Keep your appointments as scheduled Take your immunizations and boosters as scheduled If your symptoms worsen call your PCP, if no PCP go to Urgent Care Center or Emergency Room Smoking is Dangerous to Your Health. Avoid second hand smoke Call the 24-hour hour crisis hotline for domestic abuse at Lizandro Adler MD Aug 11, 2016 15:45
--- NOTE | 2016-08-11 15:57 | HHI.DS ---
Discharge Summary Admission Date Aug 09, 2016 at 03:39 Discharge Date: Aug 11, 2016 Admitting Diagnosis GI Bleed (1) Gastrointestinal bleed ICD Code: K92.2 Diagnosis: Principal (2) Abdominal pain ICD Code: R10.9 Diagnosis: Principal (3) Nausea and vomiting ICD Code: R11.2 Diagnosis: Principal (4) Pancreatic cancer ICD Code: C25.9 Procedures EGD Brief History - From Admission Mrs. Garner is an 81-year-old female with a history of hypothyroidism and pancreatic cancer who presented to the emergency room for 08/24/16 complaining of abdominal pain as well as nausea and vomiting with black emesis. The patient is seen in the emergency room. She states that she started to have increasing abdominal pain with nausea and vomiting and black emesis starting on Sunday. She states that her PRN hydrocodone usually relieves her pain but stopped working. She states the pain is across her upper abdomen and radiates to her back. Her last episode of emesis was last night. She has never had symptoms like this previously. She also reports bowel movements as black in color 2 and they changed in consistency to loose yesterday. She denies any associated dizziness, chest pain, shortness of breath, or lightheadedness. She denies any history of gastric ulcers. She sees Dr. Mcrae for pancreatic cancer that was diagnosed in 2013. She had been previously seen by Dr. Kilgore. Her pancreatic cancer was first diagnosed in 2013 and she is had a laparoscopy - Whipple procedure was attempted but aborted because of advanced disease found during laparoscopy. She has had chemotherapy and radiation with her last chemotherapy in 2013 and her last radiation treatment in 2014 She reports a history of chills following blood transfusion in the past . CBC/BMP: 08/11/16 0653 08/11/16 0653 Significant Findings Laboratory Tests Test 08/08/16 08/09/16 08/09/16 08/09/16 22:30 04:10 11:04 15:51 Red Blood Count 2.73 MIL/MM3 (4.00-5.30) Hemoglobin 8.2 GM/DL 7.2 GM/DL 9.8 GM/DL 8.9 GM/DL (11.6-15.3) (11.6-15.3) (11.6-15.3) (11.6-15.3) Hematocrit 24.0 % 21.2 % 30.1 % 26.5 % (35.0-46.0) (35.0-46.0) (35.0-46.0) (35.0-46.0) Neutrophils (%) (Auto) 75.7 % (16.0-70.0) Monocytes (%) (Auto) 11.5 % (0.0-8.0) Lymphocytes # (Auto) 0.7 TH/MM3 (1.0-4.8) Prothrombin Time 12.7 SEC (9.8-11.6) Potassium Level 3.4 MEQ/L (3.5-5.1) Calcium Level 8.0 MG/DL (8.5-10.1) Alkaline Phosphatase 273 U/L (45-117) Troponin I LESS THAN 0.02 NG/ML (0.02-0.05) Total Protein 6.3 GM/DL (6.4-8.2) Albumin 2.4 GM/DL (3.4-5.0) B-Type Natriuretic Peptide 124 PG/ML (0-100) Test 08/10/16 08/11/16 10:05 06:53 Hemoglobin 9.0 GM/DL 8.0 GM/DL (11.6-15.3) (11.6-15.3) Hematocrit 26.4 % 23.0 % (35.0-46.0) (35.0-46.0) Red Blood Count 2.56 MIL/MM3 (4.00-5.30) Monocytes (%) (Auto) 15.3 % (0.0-8.0) Lymphocytes # (Auto) 0.7 TH/MM3 (1.0-4.8) Creatinine 0.45 MG/DL (0.50-1.00) Calcium Level 7.7 MG/DL (8.5-10.1) Imaging Last Impressions Chest X-Ray 08/08/16 2272 Signed Impressions: Service Date/Time: Monday, August 08, 2016 22:32 - CONCLUSION: Small left pleural effusion with left lower lobe atelectasis versus infiltrate. Jarad Ceja Jr., MD Abdomen/Pelvis CT 08/08/16 6147 Signed Impressions: Service Date/Time: Monday, August 08, 2016 23:59 - CONCLUSION: 1. Large pancreatic head mass. There is a common bile duct stent which is patent. Intrahepatic ductal dilatation with pneumobilia. I have no prior exams to account for any change following the stent placement. 2. Moderate amount of ascites. 3. Small left pleural effusion with associated atelectasis. 4. Large hiatal hernia. 5. Cardiomegaly. Jarad Ceja Jr., MD PE at Discharge GENERAL: This is a thin, pleasant, elderly female patient, in no apparent distress. CARDIOVASCULAR: Regular rate and rhythm without murmurs. Patient has 2+ ankle edema, pitting RESPIRATORY: Clear to auscultation. Breath sounds equal bilaterally. No wheezes GASTROINTESTINAL: Abdominal pain with palpation, epigastric mass palpable, nondistended. No guarding. MUSCULOSKELETAL: Extremities w edema. No calf tenderness. NEUROLOGICAL: Awake and alert. Motor and sensory grossly within normal limits. Normal speech. Hospital Course Suspected GI bleed - on Protonix drip. Gastroenterology following status post EGD IMPRESSIONS: 1. Significant inflammation and swelling with narrowing seen in the duodenum around the biliary stent at the ampulla. Fresh blood seen in this area but no clear site of bleeding. Beyond this area duodenum normal. Significant debris in stent 2. Small erosion was found on the greater curvature of the gastric antrum 3. Retroflexed views revealed no abnormalities - s/p 1 unit PRBC H&H sl drop but no active bleed. Rpt H/H stat - Monitor vital signs every 4 hours to monitor hemodynamic stability - Consider Bleeding scan Abdominal pain Pancreatic cancer. Per GI, biliary stent is bent she needs to follow up with [facility] - Dilaudid 0.5 mg IV every 4 hours as needed for breakthrough pain and po pain meds available prn. Nausea and vomiting - resolved. continue IV fluid hydration with normal saline w potassium chloride decreased to 55 cc an hour secondary to edema. Advance diet per GI - Zofran 4 mg IV every 8 hours as needed for nausea and vomiting DVT prophylaxis - SCDs, avoid chemical prophylaxis due to GI bleed Discharge Planning Discharge when cleared by GI Pt Condition on Discharge: Stable Discharge Disposition: Discharge Home Discharge Time: <= 30 minutes Discharge Instructions DIET: Follow Instructions for: As Tolerated, No Restrictions Activities you can perform: Regular-No Restrictions Activities to Avoid: Driving Follow up Referrals: Gastroenterology - 1 Week Oncology - 1 Week PCP Follow-up - 2-3 Days New Medications: Lansoprazole (Prevacid) 30 Mg Capdr 30 MG PO DAILY Manage Heartburn #30 Ref 0 CAP Continued Medications: Hydrocodone-Acetaminophen (Hydrocodone-Acetaminophen) 10-325 mg Tab 1 TAB PO TID PRN PAIN Ref 0 TAB Levothyroxine (Levothyroxine) 75 Mcg Tab 75 MCG PO DAILY Thyroid #30 Ref 0 TAB Lizandro Adler MD Aug 11, 2016 15:56
[2016-08-11 16:16] LABS: HEMATOCRIT 27.7 % (35.0-46.0); REVIEW FLAG FINAL
[2016-08-11 17:26] VITALS: BP 100/57; PULSE 99; RESP 18; TEMP 97.8; O2SAT 94
[2016-08-11 20:00] VITALS: BP 115/56; PULSE 94; RESP 18; TEMP 96.7; O2SAT 97
[2016-08-11] MEDS: diphenhydrAMINE HCL 25 MG CAP PO PRN (20:39)
[2016-08-12] VITALS: BP 119/55; PULSE 87; RESP 17; TEMP 97.5; O2SAT 96
[2016-08-12] MEDS: ACETAMINOPHEN/HYDROcodone 325 MG/10 MG TAB PO PRN (03:51)
[2016-08-12 04:00] VITALS: BP 136/64; PULSE 89; RESP 17; TEMP 97.6; O2SAT 96
[2016-08-12] MEDS: NS + KCL 20 MEQ INJ 1,000 ML IV SCH (05:32)
[2016-08-12] MEDS: PANTOPRAZOLE INJ 80 MG in SODIUM CHLORIDE 0.9% INJ 100 ML IV SCH (06:30)
[2016-08-12 08:00] VITALS: BP 111/56; PULSE 96; RESP 18; TEMP 97.6; O2SAT 93
[2016-08-12 08:14] LABS: AUTOMATED NEUTROPHIL # 4.3 TH/MM3 (1.8-7.7); BASOPHIL % 0.4 % (0.0-2.0); EOSINOPHIL # 0.1 TH/MM3 (0-0.4); HEMATOCRIT 24.6 % (35.0-46.0); HEMO FLAGS DIFF FINAL; LYMPH % 12.8 % (9.0-44.0); LYMPHOCYTE # 0.8 TH/MM3 (1.0-4.8); MEAN CORPUSCULAR HEMOGLOBIN 31.1 PG (27.0-34.0); MEAN CORPUSCULAR HGB CONC 34.6 % (32.0-36.0); MONO % 15.4 % (0.0-8.0); NEUT % 69.4 % (16.0-70.0); PLATELET COUNT 283 TH/MM3 (150-450); RED BLOOD COUNT 2.73 MIL/MM3 (4.00-5.30); RED CELL DISTRIBUTION WIDTH 17.4 % (11.6-17.2); WHITE BLOOD COUNT 6.1 TH/MM3 (4.0-11.0)
[2016-08-12] MEDS: LEVOTHYROXINE SODIUM 75 MCG TAB PO SCH (09:24)
[2016-08-12] MEDS: ACETAMINOPHEN/HYDROcodone 325 MG/7.5 MG TAB PO PRN (09:27)
--- NOTE | 2016-08-12 11:19 | HHI.PR ---
Subjective Remarks Follow-up suspected GI bleed 08/12/16-patient seen and examined; denies any significant abdominal pain. No GI bleed reported. Vitals stable. Not much of an appetite. No bowel movement times several days Objective Vitals Vital Signs Date Time Temp Pulse Resp B/P Pulse Ox O2 Delivery O2 Flow Rate FiO2 08/12/16 08:00 97.6 96 18 111/56 93 08/12/16 04:56 16 08/12/16 04:00 97.6 89 17 136/64 96 08/12/16 00:00 97.5 87 17 119/55 96 08/11/16 20:00 96.7 94 18 115/56 97 08/11/16 17:26 97.8 99 18 100/57 94 08/11/16 13:36 97.9 79 18 122/58 97 I/O 08/11/16 08/11/16 08/11/16 08/12/16 08/12/16 08/12/16 07:00 15:00 23:00 07:00 15:00 23:00 Intake Total 150 ml 630 ml 480 ml 240 ml Output Total 2 ml Balance 148 ml 630 ml 480 ml 240 ml Intake Oral 150 ml 630 ml 480 ml 240 ml Output Urine Total 2 ml # Voids 2 4 1 # Bowel Movements 0 Result Diagram: 08/12/16 0755 08/11/16 0653 Imaging Last Impressions Chest X-Ray 08/08/162231 Signed Impressions: Service Date/Time: Monday, August 08, 2016 22:32 - CONCLUSION: Small left pleural effusion with left lower lobe atelectasis versus infiltrate. Jarad Ceja Jr., MD Abdomen/Pelvis CT 08/08/162231 Signed Impressions: Service Date/Time: Monday, August 08, 2016 23:59 - CONCLUSION: 1. Large pancreatic head mass. There is a common bile duct stent which is patent. Intrahepatic ductal dilatation with pneumobilia. I have no prior exams to account for any change following the stent placement. 2. Moderate amount of ascites. 3. Small left pleural effusion with associated atelectasis. 4. Large hiatal hernia. 5. Cardiomegaly. Jarad Ceja Jr., MD Objective Remarks GENERAL: NAD SKIN: Warm and dry. HEAD: Normocephalic. EYES: No scleral icterus. No injection or drainage. NECK: Supple, trachea midline. No JVD or lymphadenopathy. CARDIOVASCULAR: Regular rate and rhythm without murmurs, gallops, or rubs. RESPIRATORY: Breath sounds equal bilaterally. No accessory muscle use. GASTROINTESTINAL: Abdomen soft, non-tender, nondistended. MUSCULOSKELETAL: No cyanosis, or edema. BACK: Nontender without obvious deformity. No CVA tenderness. Procedures EGD A/P Problem List: (1) Gastrointestinal bleed ICD Code: K92.2 Status: Resolved (2) Abdominal pain ICD Code: R10.9 Status: Resolved (3) Nausea and vomiting ICD Code: R11.2 Status: Resolved (4) Pancreatic cancer ICD Code: C25.9 Status: Chronic Assessment and Plan 81-year-old female with Suspected GI bleed - s/p Protonix drip. Gastroenterology was consulted and patient is status post EGD - s/p 1 unit PRBC H&H stable. monitor. - Patient need to follow up at [facility] for further evaluation and treatment as outpatient due to the fact that biliary stent is bent per GI recommendation Abdominal pain Pancreatic cancer - Dilaudid 0.5 mg IV every 4 hours as needed for breakthrough pain and po pain meds available prn. Nausea and vomiting - resolved. - Zofran 4 mg IV every 8 hours as needed for nausea and vomiting DVT prophylaxis - SCDs, avoid chemical prophylaxis due to GI bleed Problem Qualifiers (1) Gastrointestinal bleed: Qualified Code: K92.2 - Gastrointestinal hemorrhage, unspecified gastrointestinal hemorrhage type (2) Pancreatic cancer: Qualified Code: C25.9 - Malignant neoplasm of pancreas, unspecified location of malignancy Enrique Atkins MD Aug 12, 2016 11:19
[2016-08-12] MEDS ORDERED: NALO1TAB2 PO (11:22)
--- NOTE | 2016-08-12 11:24 | HHI.DS ---
Discharge Summary Admission Date Aug 09, 2016 at 03:39 Discharge Date: Aug 12, 2016 Admitting Diagnosis GI Bleed (1) Gastrointestinal bleed ICD Code: K92.2 Diagnosis: Principal (2) Abdominal pain ICD Code: R10.9 Diagnosis: Principal (3) Nausea and vomiting ICD Code: R11.2 Diagnosis: Principal (4) Pancreatic cancer ICD Code: C25.9 Procedures EGD Brief History - From Admission Mrs. Garner is an 81-year-old female with a history of hypothyroidism and pancreatic cancer who presented to the emergency room for 08/24/16 complaining of abdominal pain as well as nausea and vomiting with black emesis. The patient is seen in the emergency room. She states that she started to have increasing abdominal pain with nausea and vomiting and black emesis starting on Sunday. She states that her PRN hydrocodone usually relieves her pain but stopped working. She states the pain is across her upper abdomen and radiates to her back. Her last episode of emesis was last night. She has never had symptoms like this previously. She also reports bowel movements as black in color 2 and they changed in consistency to loose yesterday. She denies any associated dizziness, chest pain, shortness of breath, or lightheadedness. She denies any history of gastric ulcers. She sees Dr. Mcrae for pancreatic cancer that was diagnosed in 2013. She had been previously seen by Dr. Kilgore. Her pancreatic cancer was first diagnosed in 2013 and she is had a laparoscopy - Whipple procedure was attempted but aborted because of advanced disease found during laparoscopy. She has had chemotherapy and radiation with her last chemotherapy in 2013 and her last radiation treatment in 2014 She reports a history of chills following blood transfusion in the past . CBC/BMP: 08/12/16 0755 08/11/16 0653 Significant Findings Laboratory Tests Test 08/09/16 08/10/16 08/11/16 08/11/16 15:51 10:05 06:53 16:08 Hemoglobin 8.9 GM/DL 9.0 GM/DL 8.0 GM/DL 9.1 GM/DL (11.6-15.3) (11.6-15.3) (11.6-15.3) (11.6-15.3) Hematocrit 26.5 % 26.4 % 23.0 % 27.7 % (35.0-46.0) (35.0-46.0) (35.0-46.0) (35.0-46.0) Red Blood Count 2.56 MIL/MM3 (4.00-5.30) Monocytes (%) (Auto) 15.3 % (0.0-8.0) Lymphocytes # (Auto) 0.7 TH/MM3 (1.0-4.8) Creatinine 0.45 MG/DL (0.50-1.00) Calcium Level 7.7 MG/DL (8.5-10.1) Test 08/12/16 07:55 Red Blood Count 2.73 MIL/MM3 (4.00-5.30) Hemoglobin 8.5 GM/DL (11.6-15.3) Hematocrit 24.6 % (35.0-46.0) Red Cell Distribution Width 17.4 % (11.6-17.2) Monocytes (%) (Auto) 15.4 % (0.0-8.0) Lymphocytes # (Auto) 0.8 TH/MM3 (1.0-4.8) Imaging Last Impressions Chest X-Ray 08/08/162231 Signed Impressions: Service Date/Time: Monday, August 08, 2016 22:32 - CONCLUSION: Small left pleural effusion with left lower lobe atelectasis versus infiltrate. Jarad Ceja Jr., MD Abdomen/Pelvis CT 08/08/162231 Signed Impressions: Service Date/Time: Monday, August 08, 2016 23:59 - CONCLUSION: 1. Large pancreatic head mass. There is a common bile duct stent which is patent. Intrahepatic ductal dilatation with pneumobilia. I have no prior exams to account for any change following the stent placement. 2. Moderate amount of ascites. 3. Small left pleural effusion with associated atelectasis. 4. Large hiatal hernia. 5. Cardiomegaly. Jarad Ceja Jr., MD PE at Discharge GENERAL: NAD SKIN: Warm and dry. HEAD: Normocephalic. EYES: No scleral icterus. No injection or drainage. NECK: Supple, trachea midline. No JVD or lymphadenopathy. CARDIOVASCULAR: Regular rate and rhythm without murmurs, gallops, or rubs. RESPIRATORY: Breath sounds equal bilaterally. No accessory muscle use. GASTROINTESTINAL: Abdomen soft, non-tender, nondistended. MUSCULOSKELETAL: No cyanosis, or edema. BACK: Nontender without obvious deformity. No CVA tenderness. Hospital Course Suspected GI bleed - s/p Protonix drip. Gastroenterology was consulted and patient is status post EGD - s/p 1 unit PRBC H&H stable. monitor. - Patient need to follow up at [facility] for further evaluation and treatment as outpatient due to the fact that biliary stent is bent per GI recommendation Abdominal pain Pancreatic cancer - Dilaudid 0.5 mg IV every 4 hours as needed for breakthrough pain and po pain meds available prn. Nausea and vomiting - resolved. - Zofran 4 mg IV every 8 hours as needed for nausea and vomiting DVT prophylaxis - SCDs, avoid chemical prophylaxis due to GI bleed Pt Condition on Discharge: Stable Discharge Disposition: Discharge Home Discharge Time: <= 30 minutes Discharge Instructions DIET: Follow Instructions for: As Tolerated, No Restrictions Activities you can perform: Regular-No Restrictions Activities to Avoid: Driving Follow up Referrals: Gastroenterology - 1 Week Oncology - 1 Week PCP Follow-up - 2-3 Days New Medications: Lansoprazole (Prevacid) 30 Mg Capdr 30 MG PO DAILY Manage Heartburn #30 Ref 0 CAP Naloxegol (Movantik) 25 Mg Tab 25 MG PO DAILY Prevent Constipation #30 Ref 0 TAB Continued Medications: Hydrocodone-Acetaminophen (Hydrocodone-Acetaminophen) 10-325 mg Tab 1 TAB PO TID PRN PAIN Ref 0 TAB Levothyroxine (Levothyroxine) 75 Mcg Tab 75 MCG PO DAILY Thyroid #30 Ref 0 TAB Additional Information Patient need to follow up at [facility] for further evaluation and treatment as outpatient due to the fact that biliary stent is bent per GI recommendation Enrique Atkins MD Aug 12, 2016 11:24
== END 2016-08-12 14:29 | disposition home or self-care (01) | DRG 378 ==
LOC: NEPE 21:57 → NEDA 08-09 03:39 → HOCB 08-09 06:54
PROVIDERS: ADMIT Hospitalist; ATTEND Hospitalist
PROC: 30233N1 Transfusion of Nonautologous Red Blood Cells into Peripheral Vein, Percutaneous Approach (ICD-10-PCS; 2016-08-09)
PROC: 0DJ08ZZ Inspection of Upper Intestinal Tract, Via Natural or Artificial Opening Endoscopic (ICD-10-PCS; principal; 2016-08-10 12:25)
DX: K92.2 Gastrointestinal hemorrhage, unspecified (principal); C25.9 Malignant neoplasm of pancreas, unspecified; R18.8 Other ascites; T85.590A Other mechanical complication of bile duct prosthesis, initial encounter; K83.8 Other specified diseases of biliary tract; D64.9 Anemia, unspecified; E03.9 Hypothyroidism, unspecified; Z92.3 Personal history of irradiation; K92.0 Hematemesis; Z92.21 Personal history of antineoplastic chemotherapy; Z87.891 Personal history of nicotine dependence
CPT/HCPCS: 36430; 71010; 74177; 80048; 80053; 82550; 83605; 83690; 83735; 83880; 84484; 85014; 85018; 85025; 85610; 85730; 86850; 86900; 86901; 86920; 96365; 96375; C9113; J1170; J2405; J2765; J3480; P9016; Q9967

== ENCOUNTER 2016-08-18 12:47 | Inpatient (IN) | payer MEDICARE ==
[~2016-08-18] VITALS: Ht 165.1 cm; Wt 63.8 kg
[2016-08-18] VITALS (11 sets, daily range): BP systolic 108–143; BP diastolic 48–74; PULSE 102–130; RESP 20–24; TEMP 97.9–98.7; O2SAT 93–95
[~2016-08-18 12:47] MED LIST changes: +HYDR-3583 PO; -KCL20 PO; +NALO1TAB2 PO; +PREV30CA11 PO
--- NOTE | 2016-08-18 12:52 | PD ---
Physical Exam Date Seen by Provider: Aug 18, 2016 Time Seen by Provider: 12:51 Narrative 81 year old female with PMH of pancreatic CA presents to the emergency department for elevated HR, edema to legs and stomach, as well as dyspnea. Patient was discharged on 08/12 after being admitted for GI bleed. Vital signs reviewed. Patient awaiting bed placement. Data Data Last Documented VS Vital Signs Date Time Temp Pulse Resp B/P Pulse Ox O2 Delivery O2 Flow Rate FiO2 08/18/16 12:49 97.9 122 24 113/56 93 Room Air MDM Supervised Visit with [facility]: Jelly Heaton Aug 18, 2016 12:52
[2016-08-18] MEDS ORDERED: SODIUM CHLORIDE 0.9% FLUSH 10 ML FLUSH IVF PRN (13:30)
--- NOTE | 2016-08-18 13:33 | PD ---
HPI Chief Complaint: Respiratory Symptoms Time Seen by Provider: 13:31 Travel History International Travel<30 days: No Contact w/Intl Traveler<30days: No Traveled to known affect area: No History of Present Illness HPI 81-year-old female with a history of pancreatic cancer presents to the emergency department for evaluation of abdominal distention, bilateral lower extremity edema and shortness of breath. The patient states that she's had bilateral lower extremity edema and abdominal distention and swelling that is been increasing over the past several weeks. States that she was scheduled to have an outpatient paracentesis performed by Dr. Jackson however began to have shortness of breath and increased heart rate the past 2 days so she called his office and was told to come to the emergency department for further evaluation. She denies chest pain, cough or cold symptoms, lightheadedness, dizziness, nausea, vomiting, diarrhea, fever, chills. She does complain of abdominal pain however reports this is chronic and unchanged. Denies any history of heart disease or heart failure. PCP Dr. Saavedra. She is under hospice care at this time. No other complaints. PFSH Past Medical History Arthritis: Yes Cancer: Yes (PANCREATIC) Cardiovascular Problems: No Chemotherapy: Yes (2 YRS AGO) Cerebrovascular Accident: No Diabetes: No Endocrine: Yes GERD: Yes Genitourinary: No Hiatal Hernia: Yes Immune Disorder: No Musculoskeletal: Yes Neurologic: No Psychiatric: No Reproductive: No Respiratory: No Migraines: No Radiation Therapy: Yes (2014) Seizures: No Thyroid Disease: Yes Menopausal: Yes Past Surgical History Abdominal Surgery: Yes (penelope, failed whipple) AICD: No Arteriovenous Shunt: No Cardiac Surgery: No Cholecystectomy: Yes Ear Surgery: No Endocrine Surgery: No Eye Surgery: No Genitourinary Surgery: No Gynecologic Surgery: No Insulin Pump: No Joint Replacement: Yes (BILATERAL KNEE, titanium) Oral Surgery: No Pacemaker: No Social History Alcohol Use: No Tobacco Use: No Substance Use: No Allergies-Medications (Allergen,Severity, Reaction): Coded Allergies: No Known Allergies (Unverified , 08/08/16) Reported Meds & Prescriptions Reported Meds & Active Scripts Active Movantik (Naloxegol) 25 Mg Tab 25 Mg PO DAILY Prevacid (Lansoprazole) 30 Mg Capdr 30 Mg PO DAILY Reported Morphine ER (Morphine Sulfate) 15 Mg Tab 15 Mg PO BID Reglan (Metoclopramide HCl) 10 Mg Tab 10 Mg PO TIDAC Hydrocodone-Acetaminophen 10-325 mg Tab 1 Tab PO TID PRN Levothyroxine (Levothyroxine Sodium) 75 Mcg Tab 75 Mcg PO DAILY Review of Systems Except as stated in HPI: all other systems reviewed are Neg Physical Exam Narrative GENERAL: Well-nourished and well-developed pleasant elderly female patient in no acute distress. SKIN: Warm and dry. HEAD: Normocephalic and atraumatic. EYES: No injection, drainage, or hyphema noted. PERRLA. EOMI. ENT: No nasal drainage noted. Oropharynx is clear. NECK: Supple and the trachea is midline. CARDIOVASCULAR: Regular rate and rhythm. RESPIRATORY: Breath sounds are decreased at bases otherwise clear to auscultation. No accessory muscle use, wheezing, rhonchi, or crackles. There is edema noted to soft tissue of bilateral chest wall. GASTROINTESTINAL: Abdomen is distended however soft and nontender. No rebound tenderness or guarding. No peritoneal signs. MUSCULOSKELETAL: Pitting edema of bilateral lower extremities. No obvious deformities, cyanosis, or ecchymosis is present throughout the upper and lower extremities. Patient has full range of motion without any signs of neurovascular compromise. NEUROLOGICAL: Awake, alert, and oriented. Normal speech and gait. Cranial nerves are grossly intact. Data Data Last Documented VS Vital Signs Date Time Temp Pulse Resp B/P Pulse Ox O2 Delivery O2 Flow Rate FiO2 08/18/16 14:41 110 20 108/57 08/18/16 14:38 96 Room Air 08/18/16 12:49 97.9 Orders Complete Blood Count With Diff (08/18/16 13:29) Comprehensive Metabolic Panel (08/18/16 13:29) Act Partial Throm Time (Ptt) (08/18/16 13:29) Prothrombin Time / Inr (Pt) (08/18/16 13:29) Iv Access Insert/Monitor (08/18/16 13:29) Ecg Monitoring (08/18/16 13:29) Oximetry (08/18/16 13:29) Oxygen Administration (08/18/16 13:29) Chest, Single Ap (08/18/16 13:29) Sodium Chloride 0.9% Flush (Ns Flush) (08/18/16 13:30) Electrocardiogram (08/18/16 13:29) Lactic Acid Sepsis Protocol (08/18/16 14:09) Blood Culture (08/18/16 14:09) Ed Poc Ultrasound (08/18/16 ) Invasive Rad Dept Consult (08/18/16 ) Ceftriaxone Inj (Rocephin Inj) (08/18/16 14:45) Fluid Culture And Gram Stain (08/18/16 14:48) Ldh, Peritoneal Fluid (08/18/16 14:48) Peritoneal Fluid Ph (08/18/16 14:48) Peritoneal Fluid Lipase (08/18/16 14:48) Total Protein Peritoneal Fluid (08/18/16 14:48) Peritoneal Cell Count + Diff (08/18/16 14:48) Ceftriaxone Inj (Rocephin Inj) (08/18/16 15:00) Place In Observation (08/18/16 ) Diet Npo (08/18/16 Dinner) Activity Bed Rest (08/18/16 15:15) Vital Signs (Adult) DIANA.Q4H (08/18/16 15:15) Admit Order (Ed Use Only) (08/18/16 15:18) Labs Laboratory Tests Test 08/18/16 08/18/16 13:50 14:20 White Blood Count 26.2 TH/MM3 Red Blood Count 3.17 MIL/MM3 Hemoglobin 9.6 GM/DL Hematocrit 29.1 % Mean Corpuscular Volume 92.0 FL Mean Corpuscular Hemoglobin 30.2 PG Mean Corpuscular Hemoglobin 32.8 % Concent Red Cell Distribution Width 17.6 % Platelet Count 283 TH/MM3 Mean Platelet Volume 7.7 FL Neutrophils (%) (Auto) 93.1 % Lymphocytes (%) (Auto) 1.2 % Monocytes (%) (Auto) 4.4 % Eosinophils (%) (Auto) 0.0 % Basophils (%) (Auto) 1.3 % Neutrophils # (Auto) 24.4 TH/MM3 Lymphocytes # (Auto) 0.3 TH/MM3 Monocytes # (Auto) 1.1 TH/MM3 Eosinophils # (Auto) 0.0 TH/MM3 Basophils # (Auto) 0.3 TH/MM3 CBC Comment DIFF FINAL Differential Comment Prothrombin Time 14.5 SEC Prothromb Time International 1.3 RATIO Ratio Activated Partial 30.8 SEC Thromboplast Time Sodium Level 133 MEQ/L Potassium Level 4.4 MEQ/L Chloride Level 99 MEQ/L Carbon Dioxide Level 21.1 MEQ/L Anion Gap 13 MEQ/L Blood Urea Nitrogen 16 MG/DL Creatinine 0.62 MG/DL Estimat Glomerular Filtration 93 ML/MIN Rate Random Glucose 107 MG/DL Calcium Level 8.5 MG/DL Total Bilirubin 1.2 MG/DL Aspartate Amino Transf 114 U/L (AST/SGOT) Alanine Aminotransferase 36 U/L (ALT/SGPT) Alkaline Phosphatase 429 U/L Total Protein 6.5 GM/DL Albumin 2.0 GM/DL Lactic Acid Level 2.0 mmol/L [facility] Medical Decision Making Medical Screen Exam Complete: Yes Emergency Medical Condition: Yes Differential Diagnosis Ascites versus pancreatic cancer versus volume overload versus other Narrative Course 81-year-old female with a history of pancreatic cancer presents to the emergency department for evaluation of abdominal distention, bilateral lower extremity edema and shortness of breath. Patient is afebrile. She is tachycardic with a heart rate of 122 bpm. Her oxygen saturation is a little low at 93% on room air. She is in no acute distress. IV access is obtained, labs drawn and sent. Patient is placed on cardiac telemetry and pulse oximetry monitoring. I did review the EMR which shows the patient was recently discharged from our hospital about a week ago where she was admitted for a GI bleed. She had an EGD at that time which showed her biliary stent was bent and that she was to follow-up with [facility]. The patient is now on hospice care. She was scheduled to have a paracentesis performed as an outpatient but due to her worsening shortness of breath was told to come to the emergency department. CBC shows an elevated white blood cell count 26.2. Anemia with hemoglobin 9.6, hematocrit 29.1 which is improved from her previous labs. CMP shows elevated T bilirubin of 1.2 and elevated LFTs AST 114, alkaline phosphatase 429. Coags are unremarkable. Chest x-ray shows stable small left pleural effusion with associated atelectasis. New small right pleural effusion. My attending physician performed a bedside ultrasound which confirms ascites with a moderate amount of fluid. Attending physician contacted interventional radiology directly and they will try to perform a paracentesis today for symptom control. The patient does have an elevated white blood cell count and therefore will be covered with 2 g of Rocephin IV. My attending physician Dr. Solorio and I both believe that the patient's symptoms are secondary to fluid overload and not true sepsis therefore she is not given IV fluids. She'll be kept in 23 hour observation for antibiotics and follow-up on fluid from paracentesis. I discussed the case with my attending physician Dr. Solorio who is aware of the patients history, physical examination findings, and treatment plan. Physician Communication Physician Communication I spoke with Dr. Hawk [facility] who agrees to admit the patient to her service. Diagnosis Primary Impression: Ascites Qualified Code: R18.0 - Malignant ascites Additional Impressions: Fluid overload Qualified Code: E87.70 - Hypervolemia, unspecified hypervolemia type Pancreatic cancer Qualified Code: C25.0 - Malignant neoplasm of head of pancreas Leukocytosis Qualified Code: D72.829 - Leukocytosis, unspecified type Admitting Information Admitting Physician Requests: Admit Prabha Saez Aug 18, 2016 13:33
[2016-08-18 14:01] LABS: AUTOMATED NEUTROPHIL # 24.4 TH/MM3 (1.8-7.7); BASOPHIL # 0.3 TH/MM3 (0-0.2); BASOPHIL % 1.3 % (0.0-2.0); HEMATOCRIT 29.1 % (35.0-46.0); HEMO FLAGS DIFF FINAL; LYMPH % 1.2 % (9.0-44.0); LYMPHOCYTE # 0.3 TH/MM3 (1.0-4.8); MEAN CORPUSCULAR HEMOGLOBIN 30.2 PG (27.0-34.0); MEAN CORPUSCULAR HGB CONC 32.8 % (32.0-36.0); MONO % 4.4 % (0.0-8.0); NEUT % 93.1 % (16.0-70.0); PLATELET COUNT 283 TH/MM3 (150-450); RED BLOOD COUNT 3.17 MIL/MM3 (4.00-5.30); RED CELL DISTRIBUTION WIDTH 17.6 % (11.6-17.2); WHITE BLOOD COUNT 26.2 TH/MM3 (4.0-11.0)
[2016-08-18] MEDS ORDERED: REGL10TA5 PO (14:03)
[2016-08-18] MEDS ORDERED: MORP1TAB24 PO (14:03)
[2016-08-18 14:12] LABS: APTT (PATIENT) 30.8 SEC (24.3-30.1); INTERNATIONAL NORMALIZED RATIO 1.3 RATIO; PROTHROMBIN TIME - PATIENT 14.5 SEC (9.8-11.6)
[2016-08-18 14:20] LABS: ALKALINE PHOSPHATASE 429 U/L (45-117); TOTAL BILIRUBIN ADULT 1.2 MG/DL (0.2-1.0)
[2016-08-18 14:21] LABS: ALT (GPT) 36 U/L (10-53); ANION GAP 13 MEQ/L (5-15); AST (GOT) 114 U/L (15-37); BICARBONATE 21.1 MEQ/L (21.0-32.0); BLOOD UREA NITROGEN 16 MG/DL (7-18); CHLORIDE 99 MEQ/L (98-107); GLOMERULAR FILTRATION RATE 93 ML/MIN (>89); SODIUM (NA) 133 MEQ/L (136-145)
[2016-08-18 14:32] LABS: POTASSIUM 4.4 MEQ/L (3.5-5.1)
[2016-08-18] MEDS ORDERED: cefTRIAXone INJ 1,000 MG in SODIUM CHLORIDE 0.9% INJ 100 ML IV ONE (14:45)
--- NOTE | 2016-08-18 14:45 | RADRPT ---
EXAM DATE/TIME: 08/18/2016 14:21 [facility] COMPARISON: CT ABDOMEN & PELVIS W CONTRAST, August 08, 2016, 23:59. CHEST SINGLE AP, August 08, 2016, 22:32. INDICATIONS : Short of breath. MEDICAL HISTORY : Carcinoma, pancreas. SURGICAL HISTORY : None. ENCOUNTER: Initial ACUITY: 1 day PAIN SCORE: 0/10 LOCATION: Bilateral chest FINDINGS: Portable AP view of the chest demonstrates a normal-sized cardiac silhouette. There is a stable left basilar pleural parenchymal opacity and new right basilar pleural-parenchymal opacity. No pneumothora x is visualized. Bones demonstrate no acute finding. CONCLUSION: 1. Stable small left pleural effusion with associated compressive atelectasis and/or consolidation. 2. New small right pleural effusion with associated compressive atelectasis and/or consolidation. Maldonado King MD on August 18, 2016 at 14:43 Board Certified Radiologist. This report was verified electronically.
[2016-08-18] MEDS ORDERED: cefTRIAXone INJ 2,000 MG in SODIUM CHLORIDE 0.9% INJ 100 ML IV ONE (15:00)
--- NOTE | 2016-08-18 15:21 | PD ---
Physical Exam Date Seen by Provider: Aug 18, 2016 Time Seen by Provider: 15:17 Narrative The patient is a 81-year-old female was initially evaluated by the mid -level provider. Please refer to the initial history, physical, diagnostic evaluation, and treatment modality plan. Data Data Last Documented VS Vital Signs Date Time Temp Pulse Resp B/P Pulse Ox O2 Delivery O2 Flow Rate FiO2 08/18/16 14:41 110 20 108/57 08/18/16 14:38 96 Room Air 08/18/16 12:49 97.9 Orders Complete Blood Count With Diff (08/18/16 13:29) Comprehensive Metabolic Panel (08/18/16 13:29) Act Partial Throm Time (Ptt) (08/18/16 13:29) Prothrombin Time / Inr (Pt) (08/18/16 13:29) Iv Access Insert/Monitor (08/18/16 13:29) Ecg Monitoring (08/18/16 13:29) Oximetry (08/18/16 13:29) Oxygen Administration (08/18/16 13:29) Chest, Single Ap (08/18/16 13:29) Sodium Chloride 0.9% Flush (Ns Flush) (08/18/16 13:30) Electrocardiogram (08/18/16 13:29) Lactic Acid Sepsis Protocol (08/18/16 14:09) Blood Culture (08/18/16 14:09) Ed Poc Ultrasound (08/18/16 ) Invasive Rad Dept Consult (08/18/16 ) Ceftriaxone Inj (Rocephin Inj) (08/18/16 14:45) Fluid Culture And Gram Stain (08/18/16 14:48) Ldh, Peritoneal Fluid (08/18/16 14:48) Peritoneal Fluid Ph (08/18/16 14:48) Peritoneal Fluid Lipase (08/18/16 14:48) Total Protein Peritoneal Fluid (08/18/16 14:48) Peritoneal Cell Count + Diff (08/18/16 14:48) Ceftriaxone Inj (Rocephin Inj) (08/18/16 15:00) Place In Observation (08/18/16 ) Diet Npo (08/18/16 Dinner) Activity Bed Rest (08/18/16 15:15) Vital Signs (Adult) DIANA.Q4H (08/18/16 15:15) Labs Laboratory Tests Test 08/18/16 08/18/16 13:50 14:20 White Blood Count 26.2 TH/MM3 Red Blood Count 3.17 MIL/MM3 Hemoglobin 9.6 GM/DL Hematocrit 29.1 % Mean Corpuscular Volume 92.0 FL Mean Corpuscular Hemoglobin 30.2 PG Mean Corpuscular Hemoglobin 32.8 % Concent Red Cell Distribution Width 17.6 % Platelet Count 283 TH/MM3 Mean Platelet Volume 7.7 FL Neutrophils (%) (Auto) 93.1 % Lymphocytes (%) (Auto) 1.2 % Monocytes (%) (Auto) 4.4 % Eosinophils (%) (Auto) 0.0 % Basophils (%) (Auto) 1.3 % Neutrophils # (Auto) 24.4 TH/MM3 Lymphocytes # (Auto) 0.3 TH/MM3 Monocytes # (Auto) 1.1 TH/MM3 Eosinophils # (Auto) 0.0 TH/MM3 Basophils # (Auto) 0.3 TH/MM3 CBC Comment DIFF FINAL Differential Comment Prothrombin Time 14.5 SEC Prothromb Time International 1.3 RATIO Ratio Activated Partial 30.8 SEC Thromboplast Time Sodium Level 133 MEQ/L Potassium Level 4.4 MEQ/L Chloride Level 99 MEQ/L Carbon Dioxide Level 21.1 MEQ/L Anion Gap 13 MEQ/L Blood Urea Nitrogen 16 MG/DL Creatinine 0.62 MG/DL Estimat Glomerular Filtration 93 ML/MIN Rate Random Glucose 107 MG/DL Calcium Level 8.5 MG/DL Total Bilirubin 1.2 MG/DL Aspartate Amino Transf 114 U/L (AST/SGOT) Alanine Aminotransferase 36 U/L (ALT/SGPT) Alkaline Phosphatase 429 U/L Total Protein 6.5 GM/DL Albumin 2.0 GM/DL Lactic Acid Level 2.0 mmol/L [facility] Medical Record Reviewed: Yes Supervised Visit with CASS: Yes Interpretation(s) Laboratory Tests Test 08/18/16 08/18/16 13:50 14:20 White Blood Count 26.2 TH/MM3 Red Blood Count 3.17 MIL/MM3 Hemoglobin 9.6 GM/DL Hematocrit 29.1 % Mean Corpuscular Volume 92.0 FL Mean Corpuscular Hemoglobin 30.2 PG Mean Corpuscular Hemoglobin 32.8 % Concent Red Cell Distribution Width 17.6 % Platelet Count 283 TH/MM3 Mean Platelet Volume 7.7 FL Neutrophils (%) (Auto) 93.1 % Lymphocytes (%) (Auto) 1.2 % Monocytes (%) (Auto) 4.4 % Eosinophils (%) (Auto) 0.0 % Basophils (%) (Auto) 1.3 % Neutrophils # (Auto) 24.4 TH/MM3 Lymphocytes # (Auto) 0.3 TH/MM3 Monocytes # (Auto) 1.1 TH/MM3 Eosinophils # (Auto) 0.0 TH/MM3 Basophils # (Auto) 0.3 TH/MM3 CBC Comment DIFF FINAL Differential Comment Prothrombin Time 14.5 SEC Prothromb Time International 1.3 RATIO Ratio Activated Partial 30.8 SEC Thromboplast Time Sodium Level 133 MEQ/L Potassium Level 4.4 MEQ/L Chloride Level 99 MEQ/L Carbon Dioxide Level 21.1 MEQ/L Anion Gap 13 MEQ/L Blood Urea Nitrogen 16 MG/DL Creatinine 0.62 MG/DL Estimat Glomerular Filtration 93 ML/MIN Rate Random Glucose 107 MG/DL Calcium Level 8.5 MG/DL Total Bilirubin 1.2 MG/DL Aspartate Amino Transf 114 U/L (AST/SGOT) Alanine Aminotransferase 36 U/L (ALT/SGPT) Alkaline Phosphatase 429 U/L Total Protein 6.5 GM/DL Albumin 2.0 GM/DL Lactic Acid Level 2.0 mmol/L Differential Diagnosis Differential diagnosis includes ascites, hypoalbuminemia, hyponatremia, volume overload, spontaneous bacterial peritonitis, complications secondary to pancreatic cancer. Narrative Course I, Dr. Solorio, have reviewed the advance practice practitioner's documentation and am in agreement, met with the patient face to face, made the diagnosis, and the medical decision making was done by me. *My assessment and Findings: The patient is a 81-year-old female who presents to the emergency department for shortness of breath and abdominal distention and lower extremity edema. The patient has a 3 year history of pancreatic cancer and was recently followed by Dr. Kilgore and then followed by Dr. paul. The patient had an attempt at Whipple procedure performed, however , they had to abort the procedure secondary to the extensive pancreatic disease. The patient then underwent radiation therapy and chemotherapy, however , was unable to tolerate complete treatments. The patient was recently placed on hospice, however, has really had no symptoms except for the last several weeks. The patient now has progressing symptoms and bedside ultrasound reveals fluid. The patient is afebrile, but does have an elevated white count. I discussed the patient with interventional radiologist, Dr. Smith, who will speak to ultrasound and they will attempt to perform a diagnostic and therapeutic paracentesis today. The patient is comfortable with this plan of care. The patient's INR, platelets, and albumin were ordered and noted. The patient will be provided Rocephin 2 g intravenously to cover for SBP while Gram stain and culture awake. The patient will be 23 hour observation. Procedures Procedure Narrative Bedside ultrasound was performed using a curvilinear probe. There was ascites noted with fluid within the abdominal cavity. The patient tolerated the procedure without difficulty and there was no obvious complications. Physician Communication Physician Communication Prabha Saez PA-C, discussed the patient with the on-call medical service who agrees with observation. Diagnosis Primary Impression: Ascites Qualified Code: R18.0 - Malignant ascites Additional Impressions: Leukocytosis Qualified Code: D72.829 - Leukocytosis, unspecified type Pancreatic cancer Qualified Code: C25.0 - Malignant neoplasm of head of pancreas Fluid overload Qualified Code: E87.70 - Hypervolemia, unspecified hypervolemia type Admitting Information Admitting Physician Requests: Observation Condition: Stable Drew Solorio MD Aug 18, 2016 15:21
--- NOTE | 2016-08-18 17:18 | RADRPT ---
EXAM DATE/TIME: 08/18/2016 16:07 [facility] COMPARISON: No previous studies available for comparison. INDICATIONS : Ascites. MEDICAL HISTORY : Pancreatic cancer. Chemotherapy. Shortness of breath. Hiatal hernia. Thyroid disease. SURGICAL HISTORY : Total knee replacement, left. Total knee replacement, right. ENCOUNTER: Initial ACUITY: 2 days PAIN SCORE: 0/10 LOCATION: Right lower quadrant FLUID: Total volume of 4300 cc of clear, yellow fluid was removed. Fluid was sent to lab for ordered studies. Post procedure scanning reveals no hematoma or other complication. TECHNIQUE: 1. Ultrasound guidance for abdominal paracentesis. 2. Paracentesis. The risks, benefits, and alternatives to ultrasound guided paracentesis were explained to the patient in detail including the risk of bleeding and infection. Written and verbal informed consent was obt ained. With the patient on the ultrasound table, ultrasound imaging was used to select the most appropriate approach for paracentesis. Overlying skin was prepped and draped in the usual sterile fashion and wi th a local anesthetic, a dermatotomy was made with an 11 blade scalpel. A 6 [place] [id number] ca theter was introduced into the peritoneal cavity and fluid was collected. The patient tolerated the procedure well and left the ultrasound suite in stable condition. CONCLUSION: Uncomplicated ultrasound guided paracentesis with removal of 4.3 L of fluid. Maldonado King MD on August 18, 2016 at 17:16 Board Certified Radiologist. This report was verified electronically.
[2016-08-18 17:29] LABS: LIPASE-PERITONEAL FLUID 23 U/L
[2016-08-18 17:35] LABS: PERITONEAL WBC 352 /MM3 (0-10)
--- NOTE | 2016-08-18 18:03 | HHI.HP ---
[facility] Service [facility] Physician Aleisha Saavedra MD Admission Diagnosis Ascites, Fluid Overload, Leukocytosis, Hx of Pancreatic Cancer Diagnoses: Chief Complaint: abdominal distention Travel History International Travel<30 Days: No Contact w/Intl Traveler <30 Da: No Traveled to Known Affected Are: No Sepsis Criteria SIRS Criteria (2 or more): Heart rate over 90, WBC > 65190, < 4000 or > 10% bands Sepsis Criteria (SIRS+source): Infect source susp/known Criteria Outcome: Meets sepsis criteria History of Present Illness Patient is an 81-year-old female recently diagnosed with pancreatic cancer. She is under home hospice with [facility]. About 3-4 weeks ago noted gradual distention of the abdomen. Gradually increasing in size with mainly back pain. Call the GI physician where she was instructed she was instructed to come to the emergency room and on evaluation confirmed ascites and paracentesis was done which drained 4.2 L. Also on evaluation had a leukocytosis of 26.2. Patient denies any fever or chills does complain of abdominal pain. Denies any dysuria or diarrhea. Patient is admitted for further evaluation and management. She had courses of chemotherapy in 2015, underwent Whipples. She refused any more chemotherapy or active treatment. she is in the process of being evaluated by [facility] and just met with them. Review of Systems Constitutional: DENIES: Diaphoretic episodes, Fatigue, Fever, Weight gain, Weight loss, Chills, Dizziness, Change in appetite, Night Sweats Endocrine: DENIES: Abnorml menstrual pattern, Heat/cold intolerance, Polydipsia , Polyuria, Polyphagia Eyes: DENIES: Blurred vision, Diplopia, Eye inflammation, Eye pain, Vision loss , Photosensitivity, Double Vision Ears, nose, mouth, throat: DENIES: Tinnitus, Hearing loss, Vertigo, Nasal discharge, Oral lesions, Throat pain, Hoarseness, Ear Pain, Running Nose, Epistaxis, Sinus Pain, Toothache, Odynophagia Respiratory: DENIES: Apneas, Cough, Snoring, Wheezing, Hemoptysis, Sputum production, Shortness of breath Cardiovascular: DENIES: Chest pain, Palpitations, Syncope, Dyspnea on Exertion , PND, Lower Extremity Edema, Orthopnea, Claudication Gastrointestinal: COMPLAINS OF: Abdominal pain, Constipation Genitourinary: DENIES: Abnormal vaginal bleeding, Dysmenorrhea, Dyspareunia, Sexual dysfunction, Urinary frequency, Urinary incontinence, Urgency, Hematuria , Dysuria, Nocturia, Vaginal discharge Musculoskeletal: COMPLAINS OF: Back pain, DENIES: Joint pain, Muscle aches, Stiffness, Joint Swelling, Neck pain Integumentary: DENIES: Abnormal pigmentation, Pruritus, Rash, Nail changes, Breast masses, Breast skin changes, Nipple discharge Hematologic/lymphatic: DENIES: Bruising, Lymphadenopathy Immunologic/allergic: DENIES: Eczema, Urticaria Neurologic: DENIES: Abnormal gait, Headache, Localized weakness, Paresthesias, Seizures, Speech Problems, Tremor, Poor Balance Psychiatric: DENIES: Anxiety, Confusion, Mood changes, Depression, Hallucinations, Agitation, Suicidal Ideation, Homicidal Ideation, Delusions Past Family Social History Past Medical History Recent diagnosis of pancreatic duct pancreatic cancer followed by Dr. Lomax and Dr. Katheryn Hughes. History of gastritis on PPI History of hypothyroidism Chronic pain Past Surgical History Bilateral knee replacement surgery Gallbladder surgery Reported Medications Hydrocodone 10/325 mg 1 tab by mouth 3 times a day when necessary for pain Prevacid 30 mg daily Synthroid 75 g daily Reglan 10 mg 3 times a day before meals Morphine ER 15 mg twice a day Move and take 25 mg daily Allergies: Coded Allergies: No Known Allergies (Unverified , 08/08/16) Family History Noncontributory Social History History of smoking quit 35 years ago Occasional wine Physical Exam Vital Signs Vital Signs Date Time Temp Pulse Resp B/P Pulse Ox O2 Delivery O2 Flow Rate FiO2 08/18/16 14:41 110 20 108/57 08/18/16 14:38 107 20 96 Room Air 08/18/16 14:03 108 20 108/51 95 Room Air 08/18/16 14:03 95 Room Air 08/18/16 12:49 97.9 122 24 113/56 93 Room Air Physical Exam GENERAL: , in no apparent distress. SKIN: No rashes, ecchymoses or lesions. Cool and dry. HEAD: Atraumatic. Normocephalic. No temporal or scalp tenderness. EYES: Pupils equal round and reactive. Extraocular motions intact. No scleral icterus. No injection or drainage. ENT: Nose without bleeding, purulent drainage or septal hematoma. Throat without erythema, tonsillar hypertrophy or exudate. Uvula midline. Airway patent. NECK: Trachea midline. No JVD or lymphadenopathy. Supple, nontender, no meningeal signs. CARDIOVASCULAR: Tachycardic with heart rate of 102 , regular rhythm without murmurs, gallops, or rubs. RESPIRATORY: Clear to auscultation. Breath sounds equal bilaterally. No wheezes , rales, or rhonchi. GASTROINTESTINAL: Abdomen soft, non-tender, nondistended. Flat (exam nation done after paracentesis} MUSCULOSKELETAL: Extremities without clubbing, cyanosis, or edema. No joint tenderness, effusion, or edema noted. No calf tenderness. Negative Homans sign bilaterally. NEUROLOGICAL: Awake and alert. Cranial nerves II through XII intact. Motor and sensory grossly within normal limits. Five out of 5 muscle strength in all muscle groups. Normal speech. Laboratory Laboratory Tests Test 08/18/16 08/18/16 08/18/16 13:50 14:15 14:20 White Blood Count 26.2 Red Blood Count 3.17 Hemoglobin 9.6 Hematocrit 29.1 Mean Corpuscular Volume 92.0 Mean Corpuscular Hemoglobin 30.2 Mean Corpuscular Hemoglobin 32.8 Concent Red Cell Distribution Width 17.6 Platelet Count 283 Mean Platelet Volume 7.7 Neutrophils (%) (Auto) 93.1 Lymphocytes (%) (Auto) 1.2 Monocytes (%) (Auto) 4.4 Eosinophils (%) (Auto) 0.0 Basophils (%) (Auto) 1.3 Neutrophils # (Auto) 24.4 Lymphocytes # (Auto) 0.3 Monocytes # (Auto) 1.1 Eosinophils # (Auto) 0.0 Basophils # (Auto) 0.3 CBC Comment DIFF FINAL Differential Comment Prothrombin Time 14.5 Prothromb Time International 1.3 Ratio Activated Partial 30.8 Thromboplast Time Sodium Level 133 Potassium Level 4.4 Chloride Level 99 Carbon Dioxide Level 21.1 Anion Gap 13 Blood Urea Nitrogen 16 Creatinine 0.62 Estimat Glomerular Filtration 93 Rate Random Glucose 107 Calcium Level 8.5 Total Bilirubin 1.2 Aspartate Amino Transf 114 (AST/SGOT) Alanine Aminotransferase 36 (ALT/SGPT) Alkaline Phosphatase 429 Total Protein 6.5 Albumin 2.0 Peritoneal Fluid pH 8.0 Peritoneal Fluid WBC 352 Peritoneal Fluid RBC 0 Peritoneal Fluid Total Protein 0.7 Peritoneal Fluid LDH 30 Peritoneal Fluid Lipase 23 Lactic Acid Level 2.0 Date/Time Procedure Status Source Growth 08/18/16 14:15 Gram Stain Received Fluid Peritoneal Fluid Pending 08/18/16 14:15 Body Fluid Culture Received Fluid Peritoneal Fluid Pending 08/18/16 14:15 Aerobic Blood Culture Received Blood Peripheral Pending 08/18/16 14:15 Anaerobic Blood Culture Received Blood Peripheral Pending Result Diagram: 08/18/16 1350 08/18/16 1350 Imaging Last Impressions Chest X-Ray 08/18/16 1329 Signed Impressions: Service Date/Time: Thursday, August 18, 2016 14:21 - CONCLUSION: 1. Stable small left pleural effusion with associated compressive atelectasis and/or consolidation. 2. New small right pleural effusion with associated compressive atelectasis and/or consolidation. Maldonado King MD Cyst Biopsy Asp-Paracentesis US 08/18/16 0000 Signed Impressions: Service Date/Time: Thursday, August 18, 2016 16:07 - CONCLUSION: Uncomplicated ultrasound guided paracentesis with removal of 4.3 L of fluid. Maldonado King MD Septic Shock Reassessment Heart: Regular rate and rhythm Lungs: Clear Skin: Warm Peripheral Pulses: Bounding Right Radial Bounding Left Radial Bounding Right Popliteal Bounding Left Popliteal Bounding Right Dorsalis Pedis Bounding Left Dorsalis Pedis Bounding Right Posterior Tibial Bounding Left Posterior Tibial Assessment and Plan Assessment and Plan 81 years old female with history of pancreatic cancer presenting with New onset ascites status post paracentesis draining 4.2 L. Pancreatic cancer- refuses any more active treatment for cancer Sepsis rule out spontaneous bacterial peritonitis, Pneumonia ascitic fluid we'll follow cultures and Gram stain Start patient on Rocephin 1 g daily Consider starting diuretics when more stable Chronic pain continue on regimen hydrocodone 1 tablet every 6 hours`25 mg by mouth daily for constipation. Continue Reglan Anemia with recent GI bleed. H&H stable Continue on Prevacid 30 mg daily History of hypothyroidism continue on 75 g by mouth daily Discussed with patient advanced directives Physician Certification 2 Midnight Certification Type: Admission for Inpatient Services Order for Inpatient Services The services are ordered in accordance with Medicare regulations or non- Medicare payer requirements, as applicable. In the case of services not specified as inpatient-only, they are appropriately provided as inpatient services in accordance with the 2-midnight benchmark. Estimated LOS (days): 3 days is the estimated time the patient will need to remain in the hospital, assuming treatment plan goals are met and no additional complications. Post-Hospital Plan: Not yet determined Jose Hawk MD Aug 18, 2016 18:03
[2016-08-18 18:16] LABS: PERITONEAL HISTIOCYTES 12 %; PERITONEAL LYMPHS 16 %; PERITONEAL MESOTHELIAL 3 %; PERITONEAL MONOS 9 %; PERITONEAL POLYS(SEGS) 60 %
[2016-08-18] MEDS: ACETAMINOPHEN/HYDROcodone 325 MG/10 MG TAB PO PRN (18:35)
[2016-08-18] MEDS: MORPHINE SULFATE 15 MG CONTROLLED RELEASE TAB PO SCH (20:52)
[2016-08-19] VITALS (24 sets, daily range): BP systolic 98–117; BP diastolic 52–63; PULSE 100–130; RESP 16–20; TEMP 97.9–98.5; O2SAT 93–98
[2016-08-19] MEDS: LEVOTHYROXINE SODIUM 75 MCG TAB PO SCH (05:13)
[2016-08-19] MEDS: MORPHINE SULFATE 15 MG CONTROLLED RELEASE TAB PO SCH ×2 (09:00→20:19)
[2016-08-19] MEDS: cefTRIAXone INJ 1,000 MG in SODIUM CHLORIDE 0.9% INJ 100 ML IV SCH (09:26)
[2016-08-19] MEDS: METOCLOPRAMIDE HCL 10 MG TAB PO SCH ×3 (09:27→17:22)
[2016-08-19] MEDS: PANTOPRAZOLE SOD 40 MG DELAYED RELEASE TAB PO SCH (09:27)
--- NOTE | 2016-08-19 11:37 | HHI.PR ---
Subjective Remarks awake and alert, no chest pains or shortness of breath, no abdominal pain Objective Vitals Vital Signs Date Time Temp Pulse Resp B/P Pulse Ox O2 Delivery O2 Flow Rate FiO2 08/19/16 06:00 100 08/19/16 05:00 105 08/19/16 04:00 106 08/19/16 04:00 Nasal Cannula 2.00 08/19/16 04:00 98.4 106 18 104/56 98 08/19/16 03:00 102 08/19/16 02:00 110 08/19/16 01:00 115 08/19/16 00:00 Nasal Cannula 2.00 08/19/16 00:00 123 08/19/16 00:00 98.3 123 20 102/52 95 08/18/16 23:00 120 08/18/16 22:00 125 08/18/16 21:00 130 08/18/16 20:00 126 08/18/16 20:00 Nasal Cannula 2.00 08/18/16 20:00 98.1 126 20 112/48 93 08/18/16 18:05 98.6 111 20 143/74 93 08/18/16 18:00 112 08/18/16 17:45 98.7 103 20 118/58 93 08/18/16 17:30 102 08/18/16 14:41 110 20 108/57 08/18/16 14:38 107 20 96 Room Air 08/18/16 14:03 108 20 108/51 95 Room Air 08/18/16 14:03 95 Room Air 08/18/16 12:49 97.9 122 24 113/56 93 Room Air I/O 08/18/16 08/18/16 08/18/16 08/19/16 08/19/16 08/19/16 07:00 15:00 23:00 07:00 15:00 23:00 Intake Total 240 ml 480 ml Output Total 700 ml Balance 240 ml -220 ml Intake Oral 240 ml 480 ml Output Urine Total 700 ml # Bowel Movements 0 Result Diagram: 08/18/16 1350 08/18/16 1350 Imaging Last Impressions Chest X-Ray 08/18/16 1329 Signed Impressions: Service Date/Time: Thursday, August 18, 2016 14:21 - CONCLUSION: 1. Stable small left pleural effusion with associated compressive atelectasis and/or consolidation. 2. New small right pleural effusion with associated compressive atelectasis and/or consolidation. Maldonado King MD Cyst Biopsy Asp-Paracentesis US 08/18/16 0000 Signed Impressions: Service Date/Time: Thursday, August 18, 2016 16:07 - CONCLUSION: Uncomplicated ultrasound guided paracentesis with removal of 4.3 L of fluid. Maldonado King MD Objective Remarks awake and alert, not in distress anicteric lungs- no rales or wheezes regular rhythm abdmen- soft, _ BS, nontender, mild fluid wave extremities + edema neuro exam- non focal Procedures 08/18- paracentesis 4.3 L out A/P Assessment and Plan 81 years old female with history of pancreatic cancer presenting with Gram negative Sepsis secondary to spontaneous bacterial peritonitis- clinically looks well ff C and S on Rocephin 1 g daily Infectious disease consult New onset ascites Pancreatic cancer start low dose diuretics as BP tolerates refuses any more active treatment for Cancer was ff by Dr. Kilgore as OP= Chronic pain continue on regimen hydrocodone 1 tablet every 6 hours`25 mg by mouth daily for constipation. Continue Reglan Anemia with recent GI bleed. H&H stable Continue on Prevacid 30 mg daily History of hypothyroidism continue on 75 g by mouth daily PT consult Chemical anticoagulation contraindicated with recent GIB- 08/12 Discussed with patient and family advanced directives- full code wants active treatment at this time for Sepsis but Jose Hawk MD Aug 19, 2016 11:37
[2016-08-19 13:22] LABS: AUTOMATED NEUTROPHIL # 22.6 TH/MM3 (1.8-7.7); BASOPHIL % 0.2 % (0.0-2.0); HEMATOCRIT 29.2 % (35.0-46.0); LYMPH % 1.5 % (9.0-44.0); LYMPHOCYTE # 0.3 TH/MM3 (1.0-4.8); MEAN CELL VOLUME 90.8 FL (80.0-100.0); MEAN CORPUSCULAR HEMOGLOBIN 30.2 PG (27.0-34.0); MEAN CORPUSCULAR HGB CONC 33.3 % (32.0-36.0); MONO % 2.3 % (0.0-8.0); PLATELET COUNT 160 TH/MM3 (150-450); RED BLOOD COUNT 3.22 MIL/MM3 (4.00-5.30); RED CELL DISTRIBUTION WIDTH 17.7 % (11.6-17.2); WHITE BLOOD COUNT 23.5 TH/MM3 (4.0-11.0)
[2016-08-19 13:33] LABS: HEMO FLAGS AUTO DIFF
[2016-08-19 13:54] LABS: BICARBONATE 30.1 MEQ/L (21.0-32.0); POTASSIUM 3.5 MEQ/L (3.5-5.1)
[2016-08-19 14:06] LABS: OVALOCYTES 1+ (NORMAL); PLATELET ESTIMATE SMEAR NORMAL (NORMAL); PLATELET MORPHOLOGY NORMAL (NORMAL); SCAN/DIFF AUTO DIFF CONFIRMED
[2016-08-19] MEDS ORDERED: LEVOFLOXACIN 750 MG PREMIX INJ 150 ML IV ONE (14:15)
[2016-08-19] MEDS: ACETAMINOPHEN/HYDROcodone 325 MG/10 MG TAB PO PRN (14:16)
--- NOTE | 2016-08-19 14:40 | MB ---
cc: BRE DELEON MD DATE OF CONSULTATION: 08/19/2016. REASON FOR CONSULTATION: Gram-negative sepsis. SBP. Pneumonia. REQUESTING PHYSICIAN: Dr. Hawk. HISTORY OF PRESENT ILLNESS: This is an 81-year-old white female who has a history of pancreatic carcinoma. The patient presented to the emergency department with bilateral lower extremity edema and shortness of breath. She was noted to have ascites and she underwent paracentesis. The patient also had leukocytosis with white count elevation to 26.2. 4.2 liters of fluid was removed from the abdomen. The peritoneal white blood cell count was 352, 60% neutrophils and 16% lymphocytes. The patient states that her only major symptom has been abdominal pain, which she has been experiencing at home. She was receiving pain medication in the form of morphine sulfate oral prior to admission. Before that, she was on oxycodone. She was having constipation while she was on the oxycodone. She denies chills. She is currently awake and alert and is sitting up in a recliner chair at the bedside. The patient's is at bedside as well. She has been afebrile since admission and she denies chills. The patient has been evaluated for hospice care. Blood cultures were taken on 08/18 and all four bottles have gram-negative rods. The peritoneal fluid culture has no growth in 24 hours. The patient denies urinary frequency or burning on urination. Her white count remains elevated at 23.5. PAST MEDICAL HISTORY: 1. Hypothyroidism. 2. Chronic pain. 3. Pancreatic cancer. 4. Cholecystectomy. 5. Bilateral knee surgery. 6. Gastritis. ALLERGIES: NO KNOWN DRUG ALLERGIES. MEDICATIONS: 1. Ceftriaxone. 2. Protonix. 3. Reglan. 4. Synthroid. 5. Morphine sulfate. 6. Foster 10 PRN. SOCIAL HISTORY: No alcohol. No tobacco. No illicit drugs. FAMILY HISTORY: Noncontributory. REVIEW OF SYSTEMS: CONSTITUTIONAL: Denies fever or chills. HEAD, EYES, EARS, NOSE, THROAT: No visual blurring or diplopia. No difficulty swallowing or soreness of the throat. No nasal bleeding or discharge. NECK: No neck swelling or pain. RESPIRATORY: Significant for mild shortness of breath. No cough or shortness of breath. CARDIOVASCULAR: No palpitations or chest pain. GASTROINTESTINAL: No nausea or vomiting or abdominal pain. Occasional diarrhea. MUSCULOSKELETAL: No generalized aches or pains. INTEGUMENTARY: No skin rash or itching. HEMATOPOIETIC: No easy bruising or bleeding. ENDOCRINE: No polyuria or polydipsia. NEUROLOGIC: No problems with gait or tremors. PSYCHIATRIC: No mood changes or confusion. PHYSICAL EXAMINATION: GENERAL: This is a frail, thin female in no acute distress. She is awake and alert. VITAL SIGNS: Temperature 98.4, blood pressure is 104/56, heart rate 20, heart rate 100. HEAD, EYES, EARS, NOSE, THROAT: Head atraumatic. Extraocular movements are grossly intact. No icterus. No conjunctival erythema. Oropharynx with moist mucosa. No visible lesions. NECK: The neck is supple without adenopathy. LUNGS: Clear breath sounds which are diminished. HEART: Regular rate and rhythm without murmurs, rubs or gallops. ABDOMEN: Bowel sounds present but diminished, mildly distended. No tenderness appreciated. RECTAL: Not performed. EXTREMITIES: No clubbing or cyanosis. Trace edema at the ankles. SKIN: No rash. NEUROLOGIC: Nonfocal. PSYCHIATRIC: The patient is calm and cooperative. LABS: WBCs 23.5, platelet count 160,000, 96% neutrophils, hemoglobin 9.7. Creatinine 0.62, BUN 16, estimated GFR 93, sodium 133. AST 114, ALT 36, alkaline phosphatase 429. IMPRESSION: 1. Gram-negative kimo bacteremia in the setting of elevated heart rate and elevated white blood cell count in a patient with ascites suggesting possible SBP as a source and thus indicating sepsis syndrome. 2. Leukocytosis. 3. SBP. 4. Pancreatic cancer. The patient was due to undergo a Whipple procedure for the pancreatic cancer but was not able to do this because of high risk and therefore she did not receive surgical treatment for the pancreatic cancer. She was considered to be high risk for surgery; this was in May of 2014. RECOMMENDATIONS: 1. Continue intravenous ceftriaxone. 2. Follow the sensitivity of the gram-negative bacteria in the blood. I have spoken to microbiology to obtain more information on the blood culture. 3. Give one dose of Levaquin while awaiting further information on the blood cultures. 4. Follow the peritoneal fluid culture until completion. 5. Monitor clinical response to treatment. The patient and her family have decided that they want to have infection treated despite her being evaluated for hospice care. Thank you for this consultation. Further recommendations will follow upon followup. Bre Deleon MD FD/[place] /2:04 PM /2:18 PM NATHANAEL
--- NOTE | 2016-08-19 15:33 | EKG ---
Date Performed: 08/18/2016 Time Performed: 13:57:35 PTAGE: 81 years EKG: SINUS TACHYCARDIA NONSPECIFIC T-WAVE CHANGE NO PREVIOUS TRACING ABNORMAL ECG NO PREVIOUS TRACING DOCTOR: Jonathan Waldron Interpretating Date/Time 08/19/2016 15:32:13
[2016-08-19] MEDS: SPIRONOLACTONE 25 MG TAB PO SCH (17:22)
[2016-08-19] MEDS ORDERED: PILL SPLITTER OTHER PRN (18:00)
[2016-08-20] VITALS (28 sets, daily range): BP systolic 104–114; BP diastolic 52–62; PULSE 94–136; RESP 16–18; TEMP 97.6–98.4; O2SAT 93–96
[2016-08-20] MEDS: ACETAMINOPHEN/HYDROcodone 325 MG/10 MG TAB PO PRN ×3 (02:35→20:02)
[2016-08-20] MEDS: LEVOTHYROXINE SODIUM 75 MCG TAB PO SCH (05:10)
[2016-08-20] MEDS: PANTOPRAZOLE SOD 40 MG DELAYED RELEASE TAB PO SCH (09:42)
[2016-08-20] MEDS: MORPHINE SULFATE 15 MG CONTROLLED RELEASE TAB PO SCH ×2 (09:42→22:44)
[2016-08-20] MEDS: METOCLOPRAMIDE HCL 10 MG TAB PO SCH ×3 (09:42→17:00)
[2016-08-20] MEDS: SPIRONOLACTONE 25 MG TAB PO SCH ×2 (09:42→18:14)
[2016-08-20] MEDS: cefTRIAXone INJ 1,000 MG in SODIUM CHLORIDE 0.9% INJ 100 ML IV SCH (09:42)
--- NOTE | 2016-08-20 17:19 | HHI.PR ---
Subjective Remarks no complains of back pain, abdominal pain , nausea or vomiting, no urinary symptoms Objective Vitals Vital Signs Date Time Temp Pulse Resp B/P Pulse Ox O2 Delivery O2 Flow Rate FiO2 08/20/16 16:44 97.9 108 18 110/59 96 08/20/16 11:48 97.6 100 16 105/57 93 08/20/16 08:00 Nasal Cannula 2.00 08/20/16 08:00 97.7 111 16 107/58 95 08/20/16 06:00 113 08/20/16 05:00 110 08/20/16 04:00 98.4 129 18 104/52 96 08/20/16 04:00 129 08/20/16 03:00 120 08/20/16 02:00 132 08/20/16 01:00 136 08/20/16 00:00 Nasal Cannula 2.00 08/20/16 00:00 124 08/20/16 00:00 98.1 124 18 114/57 95 08/19/16 23:00 124 08/19/16 22:00 120 08/19/16 21:00 122 08/19/16 20:00 Nasal Cannula 2.00 08/19/16 20:00 98.5 126 20 117/63 93 08/19/16 20:00 126 08/19/16 18:00 128 08/19/16 17:17 97.9 124 18 98/55 94 I/O 08/19/16 08/19/16 08/19/16 08/20/16 08/20/16 08/20/16 07:00 15:00 23:00 07:00 15:00 23:00 Intake Total 480 ml 930 ml 482 ml Output Total 700 ml 125 ml 600 ml Balance -220 ml 805 ml -118 ml Intake Oral 480 ml 680 ml 480 ml IV Total 250 ml 2 ml Output Urine Total 700 ml 125 ml 600 ml # Voids 1 # Bowel Movements 0 0 0 Result Diagram: 08/19/16 1313 08/19/16 1313 Imaging Last Impressions Chest X-Ray 08/18/16 1329 Signed Impressions: Service Date/Time: Thursday, August 18, 2016 14:21 - CONCLUSION: 1. Stable small left pleural effusion with associated compressive atelectasis and/or consolidation. 2. New small right pleural effusion with associated compressive atelectasis and/or consolidation. Maldonado King MD Cyst Biopsy Asp-Paracentesis US 08/18/16 0000 Signed Impressions: Service Date/Time: Thursday, August 18, 2016 16:07 - CONCLUSION: Uncomplicated ultrasound guided paracentesis with removal of 4.3 L of fluid. Maldonado King MD Objective Remarks awake and alert, not in distress anicteric lungs- no rales or wheezes regular rhythm abdomen- soft, + BS, nontender, + distension extremities traceedema neuro exam- non focal Procedures 08/18- paracentesis 4.3 L out A/P Assessment and Plan 81 years old female with history of pancreatic cancer presenting with E coli Sepsis secondary to spontaneous bacterial peritonitis- clinically looks well sensitivity pending on Rocephin [address] Burdick ff New onset ascites Pancreatic cancer start low dose diuretics as BP tolerates give IV albumin ff by Lasix x 1 now refuses any more active treatment for Cancer was ff by Dr. Kilgore as OP= Chronic pain continue on regimen hydrocodone 1 tablet every 6 hours`Continue Reglan Anemia with recent GI bleed. H&H stable Continue on Prevacid 30 mg daily History of hypothyroidism continue on 75 g by mouth daily PT consult in am Chemical anticoagulation contraindicated with recent GIB- 08/12 Discussed with patient and family advanced directives- full code wants active treatment at this time for Sepsis Jose Hawk MD Aug 20, 2016 17:19
--- NOTE | 2016-08-20 17:22 | HHI.IDPN ---
Note Infectious Disease Note Patient looks comfortable. Notes that she has abdominal pain. Afebrile. Blood and urine culture has e. coli. Patient presented to the emergency department with bilateral lower extremity edema and shortness of breath. She was noted to have ascites and she underwent paracentesis. PAST MEDICAL HISTORY: 1. Hypothyroidism. 2. Chronic pain. 3. Pancreatic cancer. 4. Cholecystectomy. 5. Bilateral knee surgery. 6. Gastritis. ALLERGIES: NO KNOWN DRUG ALLERGIES. ANTIBIOTICS: Ceftriaxone. SOCIAL HISTORY: No alcohol. No tobacco. No illicit drugs. FAMILY HISTORY: Noncontributory. OBJECTIVE: Vital Signs Date Time Temp Pulse Resp B/P Pulse Ox O2 Delivery O2 Flow Rate FiO2 08/20/16 16:44 97.9 108 18 110/59 96 08/20/16 11:48 97.6 100 16 105/57 93 08/20/16 08:00 Nasal Cannula 2.00 08/20/16 08:00 97.7 111 16 107/58 95 08/20/16 06:00 113 08/20/16 05:00 110 08/20/16 04:00 98.4 129 18 104/52 96 08/20/16 04:00 129 08/20/16 03:00 120 08/20/16 02:00 132 08/20/16 01:00 136 08/20/16 00:00 Nasal Cannula 2.00 08/20/16 00:00 124 08/20/16 00:00 98.1 124 18 114/57 95 08/19/16 23:00 124 08/19/16 22:00 120 08/19/16 21:00 122 08/19/16 20:00 Nasal Cannula 2.00 08/19/16 20:00 98.5 126 20 117/63 93 08/19/16 20:00 126 08/19/16 18:00 128 08/19/16 08/19/16 08/20/16 15:00 23:00 07:00 Intake Total 930 ml 482 ml Output Total 125 ml 600 ml Balance 805 ml -118 ml Intake Oral 680 ml 480 ml IV Total 250 ml 2 ml Output Urine Total 125 ml 600 ml # Voids 1 # Bowel Movements 0 0 Laboratory Tests Test 08/19/16 13:13 White Blood Count 23.5 TH/MM3 Red Blood Count 3.22 MIL/MM3 Hemoglobin 9.7 GM/DL Hematocrit 29.2 % Mean Corpuscular Volume 90.8 FL Mean Corpuscular Hemoglobin 30.2 PG Mean Corpuscular Hemoglobin 33.3 % Concent Red Cell Distribution Width 17.7 % Platelet Count 160 TH/MM3 Mean Platelet Volume 8.0 FL Neutrophils (%) (Auto) 96.0 % Lymphocytes (%) (Auto) 1.5 % Monocytes (%) (Auto) 2.3 % Eosinophils (%) (Auto) 0.0 % Basophils (%) (Auto) 0.2 % Neutrophils # (Auto) 22.6 TH/MM3 Lymphocytes # (Auto) 0.3 TH/MM3 Monocytes # (Auto) 0.5 TH/MM3 Eosinophils # (Auto) 0.0 TH/MM3 Basophils # (Auto) 0.0 TH/MM3 CBC Comment AUTO DIFF Differential Comment AUTO DIFF CONFIRMED Platelet Estimate NORMAL Platelet Morphology Comment NORMAL Ovalocytes 1+ Laboratory Tests Test 08/19/16 13:13 Sodium Level 133 MEQ/L Potassium Level 3.5 MEQ/L Chloride Level 98 MEQ/L Carbon Dioxide Level 30.1 MEQ/L Anion Gap 5 MEQ/L Blood Urea Nitrogen 20 MG/DL Creatinine 0.65 MG/DL Estimat Glomerular Filtration 88 ML/MIN Rate Random Glucose 150 MG/DL Calcium Level 8.5 MG/DL Microbiology Date/Time Procedure Status Source Growth 08/18/16 14:00 Aerobic Blood Culture - Preliminary Resulted Blood Peripheral Escherichia Coli 08/18/16 14:00 Anaerobic Blood Culture - Preliminary Resulted Escherichia Coli 08/18/16 14:15 Aerobic Blood Culture - Final Resulted Blood Peripheral Escherichia Coli 08/18/16 14:15 Anaerobic Blood Culture - Preliminary Resulted Escherichia Coli 08/18/16 14:15 Gram Stain - Final Resulted Fluid Peritoneal Fluid 08/18/16 14:15 Body Fluid Culture - Preliminary Resulted Fluid Peritoneal Fluid NO GROWTH IN 48 HOURS. PHYSICAL EXAMINATION: GENERAL: No acute distress. She is awake and alert. HEAD, EYES, EARS, NOSE, THROAT: Extraocular movements are grossly intact. No icterus. No conjunctival erythema. Oropharynx with moist mucosa. No visible lesions. NECK: Supple without adenopathy. LUNGS: Clear breath sounds. HEART: Regular rate and rhythm without murmurs, rubs or gallops. ABDOMEN: Bowel sounds present but diminished, mildly distended. mild tenderness appreciated. EXTREMITIES: No clubbing or cyanosis. Trace edema at the ankles. SKIN: No rash. NEUROLOGIC: Nonfocal. PSYCHIATRIC: The patient is calm and cooperative. IMPRESSION: 1. E. coli bacteremia in the setting of elevated heart rate and elevated white blood cell count in a patient with ascites suggesting possible SBP as a source and thus indicating sepsis syndrome. 2. Leukocytosis. 3. SBP. 4. Pancreatic cancer. RECOMMENDATIONS: 1. Continue intravenous ceftriaxone. 2. Follow the sensitivity of the e. coli. 3. Follow the peritoneal fluid culture until completion. 4. Monitor clinical response to treatment. Chandana Burdick MD Aug 20, 2016 17:22
[2016-08-20] MEDS ORDERED: FUROSEMIDE 20 MG/2 ML VIAL IV PUSH ONE (17:30)
[2016-08-20] MEDS ORDERED: ALBUMIN HUMAN 25% 25 GM/100 ML BAGP IV ONE (17:30)
[2016-08-20 19:40] LABS: AUTOMATED NEUTROPHIL # 13.6 TH/MM3 (1.8-7.7); BASOPHIL % 0.3 % (0.0-2.0); EOSINOPHIL % 0.1 % (0.0-4.0); HEMATOCRIT 26.5 % (35.0-46.0); HEMO FLAGS AUTO DIFF; LYMPH % 3.3 % (9.0-44.0); LYMPHOCYTE # 0.5 TH/MM3 (1.0-4.8); MEAN CELL VOLUME 90.2 FL (80.0-100.0); MEAN CORPUSCULAR HEMOGLOBIN 30.1 PG (27.0-34.0); MEAN CORPUSCULAR HGB CONC 33.4 % (32.0-36.0); MONO % 7.2 % (0.0-8.0); NEUT % 89.1 % (16.0-70.0); PLATELET COUNT 62 TH/MM3 (150-450); RED BLOOD COUNT 2.93 MIL/MM3 (4.00-5.30); RED CELL DISTRIBUTION WIDTH 17.4 % (11.6-17.2); WHITE BLOOD COUNT 15.3 TH/MM3 (4.0-11.0)
[2016-08-20 20:53] LABS: KERATOCYTES 1+ (NORMAL); OVALOCYTES 1+ (NORMAL); PLATELET ESTIMATE SMEAR LOW (NORMAL); PLATELET MORPHOLOGY NORMAL (NORMAL); SCAN/DIFF AUTO DIFF CONFIRMED
[2016-08-21] VITALS (27 sets, daily range): BP systolic 94–114; BP diastolic 34–56; PULSE 84–110; RESP 14–20; TEMP 98–98.9; O2SAT 93–100
[2016-08-21] MEDS: ACETAMINOPHEN/HYDROcodone 325 MG/10 MG TAB PO PRN ×2 (02:03→13:13)
[2016-08-21 05:16] LABS: BICARBONATE 26.8 MEQ/L (21.0-32.0); POTASSIUM 3.5 MEQ/L (3.5-5.1)
[2016-08-21] MEDS: LEVOTHYROXINE SODIUM 75 MCG TAB PO SCH (06:17)
[2016-08-21] MEDS: PANTOPRAZOLE SOD 40 MG DELAYED RELEASE TAB PO SCH (08:58)
[2016-08-21] MEDS: SPIRONOLACTONE 25 MG TAB PO SCH ×2 (08:58→17:59)
[2016-08-21] MEDS: MORPHINE SULFATE 15 MG CONTROLLED RELEASE TAB PO SCH ×2 (08:59→22:05)
[2016-08-21] MEDS: NALOXEGOL 25 MG PO SCH (08:59)
[2016-08-21] MEDS: METOCLOPRAMIDE HCL 10 MG TAB PO SCH ×3 (09:00→17:59)
[2016-08-21] MEDS: cefTRIAXone INJ 1,000 MG in SODIUM CHLORIDE 0.9% INJ 100 ML IV SCH (09:00)
--- NOTE | 2016-08-21 12:21 | HHI.PR ---
Subjective Remarks no abdominal pain, nausea or vomiting complains of some cough- dry abdomen softer com[pared with yesterday- after albumin infusion complains of cough- dry Objective Vitals Vital Signs Date Time Temp Pulse Resp B/P Pulse Ox O2 Delivery O2 Flow Rate FiO2 08/21/16 12:00 89 08/21/16 11:00 86 08/21/16 11:00 98.0 93 17 114/34 99 08/21/16 10:00 90 08/21/16 09:49 18 08/21/16 09:00 106 08/21/16 08:00 104 08/21/16 07:00 95 Room Air 08/21/16 07:00 98.4 106 20 103/56 95 08/21/16 07:00 96 08/21/16 06:00 92 08/21/16 05:00 100 08/21/16 04:00 89 08/21/16 04:00 98.9 110 14 95/55 93 08/21/16 03:00 90 08/21/16 02:00 94 08/21/16 01:00 94 08/21/16 00:00 96 08/20/16 23:00 98 08/20/16 22:40 98.4 100 18 114/56 94 08/20/16 22:00 96 08/20/16 21:00 108 08/20/16 20:03 98.3 98 16 111/62 93 08/20/16 20:00 94 Room Air 08/20/16 20:00 104 08/20/16 19:00 98 08/20/16 18:00 100 08/20/16 17:00 134 08/20/16 16:44 97.9 108 18 110/59 96 08/20/16 16:00 104 08/20/16 15:00 109 08/20/16 14:00 106 08/20/16 13:00 104 I/O 08/20/16 08/20/16 08/20/16 08/21/16 08/21/16 08/21/16 07:00 15:00 23:00 07:00 15:00 23:00 Intake Total 482 ml 880 ml 480 ml Output Total 600 ml 200 ml 450 ml Balance -118 ml 680 ml 30 ml Intake Oral 480 ml 720 ml 480 ml IV Total 2 ml 160 ml Output Urine Total 600 ml 200 ml 450 ml # Bowel Movements 0 0 0 Result Diagram: 08/20/16 1920 08/21/16 0413 Imaging Last Impressions Chest X-Ray 08/18/16 1329 Signed Impressions: Service Date/Time: Thursday, August 18, 2016 14:21 - CONCLUSION: 1. Stable small left pleural effusion with associated compressive atelectasis and/or consolidation. 2. New small right pleural effusion with associated compressive atelectasis and/or consolidation. Maldonado King MD Cyst Biopsy Asp-Paracentesis US 08/18/16 0000 Signed Impressions: Service Date/Time: Thursday, August 18, 2016 16:07 - CONCLUSION: Uncomplicated ultrasound guided paracentesis with removal of 4.3 L of fluid. Maldonado King MD Objective Remarks awake and alert, not in distress anicteric lungs- no rales or wheezes regular rhythm abdomen- softer, + fluid wave extremities no edema neuro exam- non focal Procedures 08/18- paracentesis 4.3 L out A/P Assessment and Plan 81 years old female with history of pancreatic cancer presenting with E coli Sepsis secondary to spontaneous bacterial peritonitis sensitivity pending on Rocephin [address] Burdick ff New onset ascites- improved with albumin infusion Pancreatic cancer start low dose diuretics as BP tolerates give IV albumin ff by Lasix x 1 08/20. give another dose today family requested Oncology to see patient- Dr. Mcrae cough- ask speech therapist to evaluate patient check another CXR incentive spirometry Chronic pain continue on regimen hydrocodone 1 tablet every 6 hours`Continue Reglan Anemia with recent GI bleed. H&H stable Continue on Prevacid 30 mg daily History of hypothyroidism continue on 75 g by mouth daily PT consult Chemical anticoagulation contraindicated with recent GIB- 08/12 Discussed with patient and family advanced directives- full code wants active treatment at this time for Sepsis Jose Hawk MD Aug 21, 2016 12:21 Jose Hawk MD Aug 21, 2016 12:21
[2016-08-21] MEDS ORDERED: POTASSIUM CHLORIDE 20 MEQ CONTROLLED RELEASE TAB PO ONE (13:00)
[2016-08-21] MEDS ORDERED: ALBUMIN HUMAN 25% 25 GM/100 ML BAGP IV ONE (13:00)
--- NOTE | 2016-08-21 13:20 | RADRPT ---
EXAM DATE/TIME: 08/21/2016 12:33 [facility] COMPARISON: CT ABDOMEN & PELVIS W CONTRAST, August 08, 2016, 23:59. CHEST SINGLE AP, August 18, 2016, 14:21. INDICATIONS : Short of breath MEDICAL HISTORY : Carcinoma, pancreas. SURGICAL HISTORY : None. ENCOUNTER: Initial ACUITY: 1 day PAIN SCORE: 0/10 LOCATION: Bilateral chest FINDINGS: Small bilateral pleural effusions are again noted. The heart is stable. The lungs are clear. CONCLUSION: 1. Small bilateral pleural effusions. 2. No acute focal pulmonary infiltrate or pulmonary vascular congestion. Deepak Yepez MD on August 21, 2016 at 13:14 Board Certified Radiologist. This report was verified electronically.
[2016-08-21] MEDS ORDERED: FUROSEMIDE 20 MG/2 ML VIAL IV PUSH ONE (14:00)
[2016-08-22] VITALS (24 sets, daily range): BP systolic 87–110; BP diastolic 42–54; PULSE 94–126; RESP 16–20; TEMP 97.8–98.7; O2SAT 97–100
[2016-08-22] MEDS ORDERED: ALBUMIN HUMAN 25% 25 GM/100 ML BAGP IV ONE (03:00)
[2016-08-22] MEDS: LEVOTHYROXINE SODIUM 75 MCG TAB PO SCH (06:00)
[2016-08-22 07:15] LABS: AUTOMATED NEUTROPHIL # 16.4 TH/MM3 (1.8-7.7); BASOPHIL % 0.2 % (0.0-2.0); LYMPH % 3.1 % (9.0-44.0); LYMPHOCYTE # 0.6 TH/MM3 (1.0-4.8); MEAN CELL VOLUME 90.6 FL (80.0-100.0); MEAN CORPUSCULAR HEMOGLOBIN 30.3 PG (27.0-34.0); MEAN CORPUSCULAR HGB CONC 33.5 % (32.0-36.0); MONO % 8.1 % (0.0-8.0); NEUT % 88.6 % (16.0-70.0); PLATELET COUNT 51 TH/MM3 (150-450); RED BLOOD COUNT 1.52 MIL/MM3 (4.00-5.30); RED CELL DISTRIBUTION WIDTH 16.5 % (11.6-17.2); WHITE BLOOD COUNT 18.5 TH/MM3 (4.0-11.0)
[2016-08-22 07:19] LABS: HEMO FLAGS AUTO DIFF
[2016-08-22 07:24] LABS: HEMATOCRIT 13.8 % (35.0-46.0)
[2016-08-22 07:57] LABS: ALKALINE PHOSPHATASE 138 U/L (45-117); ALT (GPT) 114 U/L (10-53); ANION GAP 12 MEQ/L (5-15); AST (GOT) 367 U/L (15-37); BICARBONATE 24.4 MEQ/L (21.0-32.0); BLOOD UREA NITROGEN 33 MG/DL (7-18); CHLORIDE 97 MEQ/L (98-107); GLOMERULAR FILTRATION RATE 48 ML/MIN (>89); POTASSIUM 4.6 MEQ/L (3.5-5.1); SODIUM (NA) 133 MEQ/L (136-145); TOTAL BILIRUBIN ADULT 2.2 MG/DL (0.2-1.0)
--- NOTE | 2016-08-22 08:16 | HHI.PR ---
Subjective Remarks early this am- had a presyncopal episode this am- when she was helped up to use the bedside commode no melena or hematochezia reported feels weak, no chest pains or shortness of breath at rest abdomen softer, denies any pain "ticklish" Objective Vitals Vital Signs Date Time Temp Pulse Resp B/P Pulse Ox O2 Delivery O2 Flow Rate FiO2 08/22/16 07:00 97.9 103 20 88/48 99 08/22/16 07:00 112 08/22/16 07:00 99 Nasal Cannula 3.00 08/22/16 06:24 98.7 112 20 93/44 98 08/22/16 06:00 106 08/22/16 05:00 110 08/22/16 04:00 118 08/22/16 03:00 123 08/22/16 02:00 126 08/22/16 01:00 110 08/22/16 00:00 106 08/21/16 23:23 98.5 98 16 107/52 99 08/21/16 23:20 94 Nasal Cannula 2.00 08/21/16 23:00 94 08/21/16 22:00 96 08/21/16 21:00 94 08/21/16 20:00 108 08/21/16 19:35 98.5 106 16 94/53 98 08/21/16 19:34 98 Nasal Cannula 2.00 08/21/16 19:00 84 08/21/16 18:00 97 08/21/16 17:00 96 08/21/16 16:00 93 08/21/16 15:00 98.0 91 20 95/53 100 08/21/16 15:00 84 08/21/16 14:00 92 08/21/16 13:00 95 08/21/16 12:00 89 08/21/16 11:00 86 08/21/16 11:00 98.0 93 17 114/34 99 08/21/16 10:00 90 08/21/16 09:49 18 08/21/16 09:00 106 I/O 08/21/16 08/21/16 08/21/16 08/22/16 08/22/16 08/22/16 07:00 15:00 23:00 07:00 15:00 23:00 Intake Total 480 ml 480 ml 420 ml Output Total 450 ml 250 ml 320 ml Balance 30 ml 230 ml 100 ml Intake Oral 480 ml 480 ml 120 ml Albumin 100 ml Other 200 ml Output Urine Total 450 ml 250 ml 320 ml # Bowel Movements 0 2 Result Diagram: 08/22/16 0631 08/22/16 0631 Imaging Last Impressions Chest X-Ray 08/21/16 0000 Signed Impressions: Service Date/Time: Sunday, August 21, 2016 12:33 - CONCLUSION: 1. Small bilateral pleural effusions. 2. No acute focal pulmonary infiltrate or pulmonary vascular congestion. Deepak Yepez MD Cyst Biopsy Asp-Paracentesis US 08/18/16 0000 Signed Impressions: Service Date/Time: Thursday, August 18, 2016 16:07 - CONCLUSION: Uncomplicated ultrasound guided paracentesis with removal of 4.3 L of fluid. Maldonado Kign MD Objective Remarks pale, awake and alert, not in distress anicteric lungs- no rales or wheezes regular rhythm abdomen- softer, + fluid wave extremities + edema neuro exam- non focal rectal exam- brown stools Procedures 08/18- paracentesis 4.3 L out A/P Assessment and Plan 81 years old female with history of pancreatic cancer presenting with E coli Sepsis secondary to spontaneous bacterial peritonitis sensitivity pending on Rocephin [address] Gennaro ngo Acute anemia- symptomatic- presyncopal episode- r/o GI bleed HYpotension- secondary to Acute Anemia no signs of external bleeding- stat recheck now. type and x match 2 units RBC - transfuse if less than 8 history of recent GI bleed- on PPI keep NPO.. check stat rectal exam- brown stools check stat CT abdomen/pelvis. GI consult. d/w Dr. Mcrae New onset ascites-- softer- S/P albumin infusion Pancreatic cancer on low dose diuretics as BP tolerates = HOLD with acute anemia S/P IV albumin ff by Domenico appreciate Dr. Mcrae seeing patient Acute kidney Insufficiency- hold Lasix- low circulating volume- 3rd spacing due to low albumin state Chronic pain continue on regimen hydrocodone 1 tablet every 6 hours`Continue Reglan History of hypothyroidism continue on 75 g by mouth daily PT consult Chemical anticoagulation contraindicated with recent GIB- 08/12 wants active treatment at this time for Sepsis ADD: discuss with family Hospice consult- - [facility] candidate Jose Hawk MD Aug 22, 2016 08:16
[2016-08-22 08:34] LABS: BANDS 8 % (0-6); NEUTROPHIL # MANUAL DIFF 17.2 TH/MM3 (1.8-7.7); POLYS (SEG NEUTROPHILS) 85 % (16-70); WBC DIFF SAMPLE 100
[2016-08-22 08:35] LABS: PLATELET ESTIMATE SMEAR LOW (NORMAL); TARGET CELLS 1+ (NORMAL)
[2016-08-22 08:36] LABS: PLATELET MORPHOLOGY NORMAL (NORMAL); SCAN/DIFF FINAL DIFF MANUAL
[2016-08-22] MEDS ORDERED: PANTOPRAZOLE SODIUM 40 MG VIAL IV PUSH SCH (09:00)
[2016-08-22] MEDS: NALOXEGOL 25 MG PO SCH (09:22)
[2016-08-22] MEDS: METOCLOPRAMIDE HCL 10 MG TAB PO SCH ×3 (09:24→17:00)
[2016-08-22] MEDS: MORPHINE SULFATE 15 MG CONTROLLED RELEASE TAB PO SCH (09:24)
[2016-08-22] MEDS: cefTRIAXone INJ 1,000 MG in SODIUM CHLORIDE 0.9% INJ 100 ML IV SCH (09:24)
[2016-08-22 09:29] LABS: AUTOMATED NEUTROPHIL # 15.3 TH/MM3 (1.8-7.7); BASOPHIL % 0.1 % (0.0-2.0); LYMPH % 3.5 % (9.0-44.0); LYMPHOCYTE # 0.6 TH/MM3 (1.0-4.8); MEAN CELL VOLUME 90.6 FL (80.0-100.0); MEAN CORPUSCULAR HEMOGLOBIN 30.2 PG (27.0-34.0); MEAN CORPUSCULAR HGB CONC 33.3 % (32.0-36.0); MONO % 8.9 % (0.0-8.0); NEUT % 87.5 % (16.0-70.0); PLATELET COUNT 53 TH/MM3 (150-450); RED BLOOD COUNT 1.54 MIL/MM3 (4.00-5.30); RED CELL DISTRIBUTION WIDTH 16.4 % (11.6-17.2); WHITE BLOOD COUNT 17.5 TH/MM3 (4.0-11.0)
[2016-08-22 09:33] LABS: HEMO FLAGS AUTO DIFF
[2016-08-22 09:40] LABS: APTT (PATIENT) 50.4 SEC (24.3-30.1); INTERNATIONAL NORMALIZED RATIO 1.6 RATIO; PROTHROMBIN TIME - PATIENT 17.8 SEC (9.8-11.6)
[2016-08-22 10:15] LABS: PLATELET ESTIMATE SMEAR LOW (NORMAL); TARGET CELLS 1+ (NORMAL)
[2016-08-22 10:16] LABS: PLATELET MORPHOLOGY ENLARGED (NORMAL); SCAN/DIFF AUTO DIFF CONFIRMED
[2016-08-22] MEDS ORDERED: IOHEXOL 350 MG/ML 10 ML VIAL (for RAD DIAG) IV ONE (11:38)
--- NOTE | 2016-08-22 12:37 | RADRPT ---
EXAM DATE/TIME: 08/22/2016 11:15 [facility] COMPARISON: CT ABDOMEN & PELVIS W CONTRAST, August 08, 2016, 23:59. INDICATIONS : Bleeding. IV CONTRAST: 75 cc Omnipaque 350 (iohexol) IV ORAL CONTRAST: No oral contrast ingested. RADIATION DOSE: 8.66 CTDIvol (mGy) MEDICAL HISTORY : Hernia, hiatal. Carcinoma, pancreas. SURGICAL HISTORY : Cholecystectomy. ENCOUNTER: Initial ACUITY: 1 day PAIN SCALE: 6/10 LOCATION: TECHNIQUE: Volumetric scanning of the abdomen and pelvis was performed. Using automated exposure control and ad justment of the mA and/or kV according to patient size, radiation dose was kept as low as reasonably achievable to obtain optimal diagnostic quality images. FINDINGS: There is a changed appearance of the stomach when compared to prior examination with marked distentio n and fluid within the stomach. The distal esophagus also appears to be filled with fluid and is dis tended, measuring up to 3.3 cm in width. Moderate-sized bilateral pleural effusions, slightly larger on the left and new on the right with associated compressive atelectasis in the lower lungs. There is an indwelling biliary stent which traverses the large mass of the head of the pancreas. Ilya iary ductal dilatation is similar to prior CT, but there is a change configuration to the posterior s egment of the right lobe of the liver with diffuse decreased enhancement with a triangular-shaped int erface. This extends from the liver tip up to the posterior dome. This suggests necrotic or abscess . The kidneys are symmetric in appearance without evidence of hydronephrosis. The spleen is unremarkab le. There is a moderate amount of ascites which is slightly decreased when compared to prior CT scan . Loops of small and large bowel are normal in dimension. Pelvic ascites is prominent, but also sli ghtly less than one prior CT scan. There is diffuse edema in the subcutaneous soft tissues throughou t the abdominal wall and pelvis. The osseous structures are stable in appearance. CONCLUSION: 1. Changed appearance through the posterior segment of the right lobe of the liver extending from dom e to tip with absent enhancement in a well demarcated interface. This suggest either abscess formati on or development of necrosis. 2. Indwelling biliary stent across the large pancreatic mass is stable. 3. Moderate ascites, slightly less than on prior. Moderate size bilateral pleural effusions, stable on the left side and new on the right side. 4. Markedly distended stomach and distal esophagus with fluid within the lumen. Jarad Em MD on August 22, 2016 at 12:27 Board Certified Radiologist. This report was verified electronically.
[2016-08-22] MEDS: ACETAMINOPHEN/HYDROcodone 325 MG/10 MG TAB PO PRN ×2 (12:54→17:53)
--- NOTE | 2016-08-22 14:06 | PD.CONS ---
HPI History of Present Illness This is a 81 year old with known pancreatic cancer (diagnosed in 2013). She was treated with chemotherapy initially and the plan was for Whipple procedure, but this was cancelled because she was found to have advanced disease during the laparoscopy. She was treated with radiation in 2014. She had a permanent biliary stent placed at [facility]. Her friend at the bedside states that he believes that this was placed in May of 2015. She was seen earlier this month for GI Bleeding and evaluated with EGD (08/10/16)----> significant inflammation and swelling with narrowing seen in the duodenum around the biliary stent at the ampulla. Fresh blood seen in this area but no clear site of bleeding. Beyond this area duodenum normal. Significant debris in stent. Her bleeding subsided and the plan was for her to follow up at [facility] for further evaluation and treatment as outpatient, as she was well established with them. She reports that she has not been seen back at [facility]. She states that her physician actually retired and that another physician will not be available to see her until November. She reports that since her discharge, she has been having worsening ascites and lower extremity edema. She returned to the ER on 08/18 for further evaluation of this. Of note, her H/H at that time was 9.6 /29.1 and her WBC was 26.2. She underwent a paracentesis on 08/18/16 and she had 4,300cc of clear yellow fluid removed. Since that time, she has had decreased appetite, generalized weakness. She has only been able to take sips of water. She denies any nausea/vomiting and denies abdominal pain, although her friend states that her pain meds were recently adjusted. Today, she was noted to have a drop in Hgb from 8.8 on 08/20 to 4.6/13.8 today. She is on her second unit of PRBC. The nurse reports that she has not had any obvious active bleeding with hematemesis or hematochezia or melena. The patient does report that she had an episode of melena about a week ago, but has not had further episodes. She also went down for Ct scan abdomen and pelvis with iv contrast ()----> 1. Changed appearance through the posterior segment of the right lobe of the liver extending from dome to tip with absent enhancement in a well demarcated interface. This suggest either abscess formation or development of necrosis. 2. Indwelling biliary stent across the large pancreatic mass is stable. 3. Moderate ascites, slightly less than on prior. Moderate size bilateral pleural effusions, stable on the left side and new on the right side. 4. Markedly distended stomach and distal esophagus with fluid within the lumen. D/W patient and her friends at bedside (per patient request) CT findings, concerning for bleeding, concern for partial biliary obstruction, possible EGD with control of bleeding. Also discussed with patient that we may or may not be able to control the bleeding and even if we are able to, that this would not fix the underlying issue and that she would like have recurrent issues. She reports that she would like to hold off on making a decision re: EGD until her arrives and we are able to speak with him. (Korina Ceja) PFSH Past Medical History Pancreatic cancer Recent GIB Gastritis Hypothyroidism Chronic pain Past Surgical History Bilateral knee replacement surgery Gallbladder surgery Laparoscopy for pancreatic cancer, whipple procedure was terminated due to advanced cancer seen during laparoscopy ERCP with permanent stent placement Recent EGD (Korina Ceja) Coded Allergies: No Known Allergies (Unverified , 08/08/16) Medications Allergies Coded Allergies Type Severity Reaction Last Updated Verified No Known Allergies 08/08/16 No Active Scripts Medications Dose Route/Sig Days Date Category Morphine ER (Morphine Sulfate) 15 Mg Tab 15 Mg PO BID 08/18/16 Reported Reglan (Metoclopramide HCl) 10 Mg Tab 10 Mg PO TIDAC 08/18/16 Reported Movantik (Naloxegol) 25 Mg Tab 25 Mg PO DAILY 08/12/16 Rx Prevacid (Lansoprazole) 30 Mg Capdr 30 Mg PO DAILY 08/11/16 Rx Hydrocodone-Acetaminophen 10-325 mg Tab 1 Tab PO TID PRN 08/08/16 Reported Levothyroxine (Levothyroxine Sodium) 75 Mcg Tab 75 Mcg PO DAILY 08/08/16 Reported Family History Noncontributory Social History History of smoking quit 35 years ago Occasional wine (Korina Ceja) Review of Systems Constitutional: COMPLAINS OF: Fatigue, Weight loss, Change in appetite Respiratory: DENIES: Cough Cardiovascular: DENIES: Chest pain Gastrointestinal: COMPLAINS OF: Anorexia, Swelling of Abdomen, DENIES: Abdominal pain, Black stools, Bloody stools, Nausea, Vomiting, Hematemesis Hematologic/lymphatic: COMPLAINS OF: Bruising Neurologic: DENIES: Headache Psychiatric: DENIES: Confusion ROS Very lethargic, poor historian. denies abdominal pain (Korina Ceja) GI Exam Vitals I&O Vital Signs Date Time Temp Pulse Resp B/P Pulse Ox O2 Delivery O2 Flow Rate FiO2 08/22/16 13:00 98 08/22/16 12:47 98.6 97 16 87/46 98 08/22/16 12:30 97.8 101 20 90/42 97 08/22/16 12:00 99 08/22/16 11:00 97.8 101 20 87/45 98 08/22/16 11:00 112 08/22/16 10:00 103 08/22/16 09:00 103 08/22/16 08:00 108 08/22/16 07:00 97.9 103 20 88/48 99 08/22/16 07:00 112 08/22/16 07:00 99 Nasal Cannula 3.00 08/22/16 06:24 98.7 112 20 93/44 98 08/22/16 06:00 106 08/22/16 05:00 110 08/22/16 04:00 118 08/22/16 03:00 123 08/22/16 02:00 126 08/22/16 01:00 110 08/22/16 00:00 106 08/21/16 23:23 98.5 98 16 107/52 99 08/21/16 23:20 94 Nasal Cannula 2.00 08/21/16 23:00 94 08/21/16 22:00 96 08/21/16 21:00 94 08/21/16 20:00 108 08/21/16 19:35 98.5 106 16 94/53 98 08/21/16 19:34 98 Nasal Cannula 2.00 08/21/16 19:00 84 08/21/16 18:00 97 08/21/16 17:00 96 08/21/16 16:00 93 08/21/16 15:00 98.0 91 20 95/53 100 08/21/16 15:00 84 I/O 08/21/16 08/21/16 08/21/16 08/22/1618/17 4/18/17 07:00 15:00 23:00 07:00 15:00 23:00 Intake Total 480 ml 480 ml 420 ml Output Total 450 ml 250 ml 320 ml Balance 30 ml 230 ml 100 ml Intake Oral 480 ml 480 ml 120 ml Albumin 100 ml Other 200 ml Output Urine Total 450 ml 250 ml 320 ml # Bowel Movements 0 2 Imaging Last Impressions Abdomen/Pelvis CT 08/22/16 0000 Signed Impressions: Service Date/Time: Monday, August 22, 2016 11:15 - CONCLUSION: 1. Changed appearance through the posterior segment of the right lobe of the liver extending from dome to tip with absent enhancement in a well demarcated interface. This suggest either abscess formation or development of necrosis. 2. Indwelling biliary stent across the large pancreatic mass is stable. 3. Moderate ascites, slightly less than on prior. Moderate size bilateral pleural effusions, stable on the left side and new on the right side. 4. Markedly distended stomach and distal esophagus with fluid within the lumen. Jarad Em MD Chest X-Ray 08/21/16 0000 Signed Impressions: Service Date/Time: Sunday, August 21, 2016 12:33 - CONCLUSION: 1. Small bilateral pleural effusions. 2. No acute focal pulmonary infiltrate or pulmonary vascular congestion. Deepak Yepez MD Cyst Biopsy Asp-Paracentesis US 08/18/16 0000 Signed Impressions: Service Date/Time: Thursday, August 18, 2016 16:07 - CONCLUSION: Uncomplicated ultrasound guided paracentesis with removal of 4.3 L of fluid. Maldonado King MD Laboratory Test 08/22/16 08/22/16 08/22/16 06:31 08:59 10:02 White Blood Count 18.5 TH/MM3 17.5 TH/MM3 Red Blood Count 1.52 MIL/MM3 1.54 MIL/MM3 Hemoglobin 4.6 GM/DL 4.7 GM/DL Hematocrit 13.8 % 14.0 % Mean Corpuscular Volume 90.6 FL 90.6 FL Mean Corpuscular Hemoglobin 30.3 PG 30.2 PG Mean Corpuscular Hemoglobin 33.5 % 33.3 % Concent Red Cell Distribution Width 16.5 % 16.4 % Platelet Count 51 TH/MM3 53 TH/MM3 Mean Platelet Volume 11.1 FL 11.1 FL Neutrophils (%) (Auto) 88.6 % 87.5 % Lymphocytes (%) (Auto) 3.1 % 3.5 % Monocytes (%) (Auto) 8.1 % 8.9 % Eosinophils (%) (Auto) 0.0 % 0.0 % Basophils (%) (Auto) 0.2 % 0.1 % Neutrophils # (Auto) 16.4 TH/MM3 15.3 TH/MM3 Lymphocytes # (Auto) 0.6 TH/MM3 0.6 TH/MM3 Monocytes # (Auto) 1.5 TH/MM3 1.6 TH/MM3 Eosinophils # (Auto) 0.0 TH/MM3 0.0 TH/MM3 Basophils # (Auto) 0.0 TH/MM3 0.0 TH/MM3 CBC Comment AUTO DIFF AUTO DIFF Differential Total Cells 100 Counted Neutrophils % (Manual) 85 % Band Neutrophils % 8 % Lymphocytes % 1 % Monocytes % 6 % Neutrophils # (Manual) 17.2 TH/MM3 Differential Comment FINAL DIFF AUTO DIFF MANUAL CONFIRMED Platelet Estimate LOW LOW Platelet Morphology Comment NORMAL ENLARGED Target Cells 1+ 1+ Sodium Level 133 MEQ/L Potassium Level 4.6 MEQ/L Chloride Level 97 MEQ/L Carbon Dioxide Level 24.4 MEQ/L Anion Gap 12 MEQ/L Blood Urea Nitrogen 33 MG/DL Creatinine 1.09 MG/DL Estimat Glomerular Filtration 48 ML/MIN Rate Random Glucose 93 MG/DL Calcium Level 8.3 MG/DL Total Bilirubin 2.2 MG/DL Aspartate Amino Transf 367 U/L (AST/SGOT) Alanine Aminotransferase 114 U/L (ALT/SGPT) Alkaline Phosphatase 138 U/L Total Protein 4.4 GM/DL Albumin 2.0 GM/DL Prothrombin Time 17.8 SEC Prothromb Time International 1.6 RATIO Ratio Activated Partial 50.4 SEC Thromboplast Time Fibrinogen 216 mg/dL CA 19-9 Antigen 91.6 U/ML Blood Type A NEGATIVE Antibody Screen NEGATIVE Crossmatch Leukocyte-Reduced Leukocyte-Reduced Red Blood Red Blood Cells Cells Blood Bank Comment Date/Time Procedure Status Source Growth 08/18/16 14:15 Gram Stain - Final Complete Fluid Peritoneal Fluid 08/18/16 14:15 Body Fluid Culture - Final Complete Fluid Peritoneal Fluid NO GROWTH IN 72 HRS.--AEROBICALLY OR ... 08/18/16 14:15 Aerobic Blood Culture - Final Complete Blood Peripheral Escherichia Coli 08/18/16 14:15 Anaerobic Blood Culture - Final Complete Escherichia Coli Physical Examination HEENT: Normocephalic; atraumatic; no jaundice. CHEST: resp. even/unlabored/shallow. diminished CARDIAC: RRR ABDOMEN: Soft, +ascites, diffuse mild tendenress, hepatosplenomegaly; bowel sounds are present in all four quadrants. EXTREMITIES: BLE edema. SKIN: Normal; no rash; no jaundice. SHEEP FARMER: Lethargic (CejaKorina Stevenson HOSPITALITY COORDINATOR) Assessment and Plan Plan ASSESSMENT: - Suspected GIB, Drop in Hgb. Recent hospitalization for GI Bleeding. S/P EGD (08/10/16)----> significant inflammation and swelling with narrowing seen in the duodenum around the biliary stent at the ampulla. Fresh blood seen in this area but no clear site of bleeding. Beyond this area duodenum normal. Significant debris in stent. She went home and reports that she did have melena about a week ago. She has not had any obvious active bleeding per nurse, but had significant drop in Hgb from 8.8 on 08/20 to 4.6/13.8 today. She is on her second unit of PRBC. Long discussion with patient, friends at bedside (per patient request) re: goals , possible evaluation with EGD. Also discussed with patient that we may or may not be able to control the bleeding and even if we are able to, that this would not fix the underlying issue and that she would likely have recurrent issues. She reports that she would like to hold off on making a decision re: EGD until her arrives and we are able to speak with him. I was called back to the room when the arrived and they report that they would like comfort measures/hospice. He states that hospice was by his house to enroll her previously and they would like to go that route. Notified oncology/primary. - Anemia secondary to blood loss. On #2 PRBC for HH 4.6/13.8. - Biliary obstruction. Pt had metal stent placed at [facility]. On recent EGD, this was noted to have debris and it was recommended that she return to [facility] for further evaluation treatment of this. She has not been able to make it to [facility] and she now has worsening LFTs, consistent with worsening obstruction. However , they are now wanting comfort measures. - Abnormal imaging on Ct scan abdomen and pelvis with iv contrast (08/22/16)---- > 1. Changed appearance through the posterior segment of the right lobe of the liver extending from dome to tip with absent enhancement in a well demarcated interface. This suggest either abscess formation or development of necrosis. 2. Indwelling biliary stent across the large pancreatic mass is stable. 3. Moderate ascites, slightly less than on prior. Moderate size bilateral pleural effusions, stable on the left side and new on the right side. 4. Markedly distended stomach and distal esophagus with fluid within the lumen. - Leukocytosis. CT as above. WBC 17.5. - Pancreatic cancer. Dx in 2013. She was treated with chemotherapy initially and the plan was for Whipple procedure, but this was cancelled because she was found to have advanced disease during the laparoscopy. She was treated with radiation in 2014. She had a permanent biliary stent placed at [facility]. Her friend at the bedside states that he believes that this was placed in May of 2015, thinks this was earlier than that. - Inability to tolerate po with narrowing of duodenum on recent egd. - Ascites. S/P paracentesis. - KASHIF. PLAN: - Long discussion with patient/ regarding bleeding, CT findings, possible evaluation with EGD. At this time, they would like to avoid invasive procedures such as EGD and pursue comfort measures/hospice care. The reports that hospice has been by the house to speak with him. Notified primary and oncology. GI will sign off, please reconsult as needed. - Pt seen and examined by Dr. Gaffney and myself and this note is written on her behalf (Korina Ceja) Physician Comments seen, examined agree with above call us if any change in care plan (Lashay Gaffney MD) Korina Ceja Aug 22, 2016 14:06 Lashay Gaffney MD Aug 22, 2016 20:18
--- NOTE | 2016-08-23 08:31 | MB ---
cc: KENNEDY GUPTA M.D. DATE OF CONSULTATION August 22, [address] Hawk REASON FOR CONSULTATION Oncology consult to render opinion regarding patient with advanced pancreatic cancer admitted with ascites and abdominal pain. HISTORY OF PRESENT ILLNESS The patient is an 81-year-old female with history of locally advanced pancreatic cancer who presented to the hospital with increased weakness, abdominal distension and increased back pain for last 3-4 weeks. She has decreased appetite and lost some weight. She was just admitted a few weeks ago with a GI bleed. She says she has been getting weaker. She denies any fever or chills. She denies any nausea, vomiting or diarrhea. She still has constipation due to opiates. Denies any dysuria or hematuria. Denies any bone pain, headache, focal numbness or weakness. PAST MEDICAL HISTORY 1. Metastatic pancreatic cancer. 2. Gastritis. 3. Hypothyroidism. 4. GI bleed. PAST SURGICAL HISTORY 1. Bilateral knee replacement. 2. Cholecystectomy. 3. ERCP with biliary stent placement. 4. Cataract surgery. FAMILY HISTORY Noncontributory. SOCIAL HISTORY Quit tobacco more than 35 years ago. She used to drink occasionally. ALLERGIES No known drug allergy. MEDICATIONS 1. Aldactone. 2. Ceftriaxone. 3. Protonix. 4. Reglan. 5. Levothyroxine. 6. Oramorph. REVIEW OF SYSTEMS CONSTITUTIONAL: Has lost more weight but could not quantify. Increased weakness. Denies fevers, chills, night sweats. EYES: Denies any blurry vision, double vision. ENT: No mouth sores or voice changes. CARDIOVASCULAR: No chest pressure or palpitation. RESPIRATORY: Dyspnea on exertion. Denies any cough. GI: As above. : Denies dysuria or hematuria. MUSCULOSKELETAL: Denies any bone pain or muscle pain. HEMATOLOGY: Negative. ENDOCRINE: Negative. DERMATOLOGY: Negative. PSYCHIATRIC: A little depressed. NEUROLOGIC: Negative. PHYSICAL EXAMINATION VITAL SIGNS: Temperature 97.9, blood pressure 88/48, O2 saturation 99% on 3 liters per nasal cannula. GENERAL: She is alert and oriented x 3. She looks weak and pale. HEENT: Atraumatic, normocephalic. Pupils equal, round and reactive to light. Extraocular muscles intact. No scleral icterus. Oropharynx - dry mucosa. NECK: No thyromegaly. No palpable mass. LYMPHATIC: No palpable cervical, clavicular, axillary or inguinal lymph nodes. CARDIOVASCULAR: Regular S1 and S2. Mildly tachycardia. No murmur. LUNGS: Slight basilar crackles. ABDOMEN: Slightly distended but soft. There is a palpable mass in the epigastric area, nontender. EXTREMITY EXAM: 2+ lower extremity edema. No calf tenderness. BACK: No paravertebral tenderness. SKIN: No rash or petechia. NEUROLOGIC: Exam nonfocal. LABORATORY DATA Reviewed. ASSESSMENT 1. Locally advanced pancreatic cancer. She presented with obstructive jaundice in August 2013 and was found to have a pancreatic mass. Biopsy showed pancreatic adenocarcinoma. She had received four cycle of Gemzar and Abraxane. She went to [facility] for attempted Whipple surgery but the surgery was terminated because she was found to have locally advanced disease. She then received 3 weeks of radiation with continuous 5-FU infusion. She did not tolerate it very well and became very weak. Around April 2016 she was found to have progression of the pancreatic mass and the mass had grown up to about 5 cm, it invaded the juan pablo hepatis, encases the hepatic artery and portal vein. There was also significant periportal lucency and indicative of either passive congestion in the liver or biliary necrosis. The mass was obstructive so a pancreatic duct metal biliary stent was placed. She has declined further chemotherapy and treatment. Her disease has continued to progress. During her last admission CT of the abdomen and pelvis showed a large mass in the head pancreas measured 5 x 3.5-cm. There was also intrahepatic ductal dilatation and pneumobilia. There was increased ascites. She does not want further treatment and they are in the process of talking to hospice. 2. Sepsis. Blood culture grew E-coli. She likely has SBP. She is currently on antibiotic per Infectious Disease. 3. Abdominal pain due to the pancreatic cancer. She feels more comfortable after the paracentesis. The pain is controlled. 4. Constipation, controlled. 5. Hypothyroidism, stable. 6. Anemia due to chronic disease. She has no apparent bleeding. However, this morning CBC came back showing a hemoglobin of 4.6. I am going to repeat another CBC. 7. Leukocytosis due to underlying sepsis. 8. Thrombocytopenia. I think this is due to the liver failure as well as a consumptive process like DIC. PLAN 1. Discussion with the patient as above. Her overall prognosis is poor. Agree with Hospice support. 2. Continue antibiotic per Infectious Disease. 3. Repeat CBC and we will give her transfusion if her hemoglobin is less than 7. 4. Check a DIC panel. Thank you Dr. Hawk for asking me to see this patient MD ASHU Watson/MAUDE /7:57 AM /8:11 AM NATHANAEL
--- NOTE | 2016-09-19 15:20 | HHI.DS ---
Discharge Summary Admission Date Aug 19, 2016 at 11:21 Discharge Date: September 21, 2016 Admitting Diagnosis Ascites, Fluid Overload, Leukocytosis, Hx of Pancreatic Cancer (1) Ascites ICD Code: R18.8 Diagnosis: Principal (2) Pancreatic cancer ICD Code: C25.9 Diagnosis: Principal Procedures 08/18- paracentesis 4.3 L out Brief History - From Admission Patient is an 81-year-old female recently diagnosed with pancreatic cancer. She is under home hospice with [facility]. About 3-4 weeks ago noted gradual distention of the abdomen. Gradually increasing in size with mainly back pain. Call the GI physician where she was instructed she was instructed to come to the emergency room and on evaluation confirmed ascites and paracentesis was done which drained 4.2 L. Also on evaluation had a leukocytosis of 26.2. Patient denies any fever or chills does complain of abdominal pain. Denies any dysuria or diarrhea. Patient is admitted for further evaluation and management. She had courses of chemotherapy in 2015, underwent Whipples. She refused any more chemotherapy or active treatment. she is in the process of being evaluated by [facility] and just met with them. Imaging Last Impressions Abdomen/Pelvis CT 08/22/16 0000 Signed Impressions: Service Date/Time: Monday, August 22, 2016 11:15 - CONCLUSION: 1. Changed appearance through the posterior segment of the right lobe of the liver extending from dome to tip with absent enhancement in a well demarcated interface. This suggest either abscess formation or development of necrosis. 2. Indwelling biliary stent across the large pancreatic mass is stable. 3. Moderate ascites, slightly less than on prior. Moderate size bilateral pleural effusions, stable on the left side and new on the right side. 4. Markedly distended stomach and distal esophagus with fluid within the lumen. Jarad Em MD Chest X-Ray 08/21/16 0000 Signed Impressions: Service Date/Time: Sunday, August 21, 2016 12:33 - CONCLUSION: 1. Small bilateral pleural effusions. 2. No acute focal pulmonary infiltrate or pulmonary vascular congestion. Deepak Yepez MD Cyst Biopsy Asp-Paracentesis US 08/18/16 0000 Signed Impressions: Service Date/Time: Thursday, August 18, 2016 16:07 - CONCLUSION: Uncomplicated ultrasound guided paracentesis with removal of 4.3 L of fluid. Maldonado King MD PE at Discharge pale, awake and alert, not in distress anicteric lungs- no rales or wheezes regular rhythm abdomen- softer, + fluid wave extremities + edema neuro exam- non focal rectal exam- brown stools Hospital Course 81 years old female with history of pancreatic cancer presenting with E coli Sepsis secondary to spontaneous bacterial peritonitis sensitivity pending on Rocephin [address] Gennaro ngo Acute anemia- symptomatic- presyncopal episode- r/o GI bleed HYpotension- secondary to Acute Anemia no signs of external bleeding- stat recheck now. type and x match 2 units RBC - transfuse if less than 8 history of recent GI bleed- on PPI keep NPO.. check stat rectal exam- brown stools check stat CT abdomen/pelvis. GI consult. d/w Dr. Mcrae New onset ascites-- softer- S/P albumin infusion Pancreatic cancer on low dose diuretics as BP tolerates = HOLD with acute anemia S/P IV albumin ff by Lasix appreciate Dr. Mcrae seeing patient Acute kidney Insufficiency- hold Lasix- low circulating volume- 3rd spacing due to low albumin state Chronic pain continue on regimen hydrocodone 1 tablet every 6 hours`Continue Reglan History of hypothyroidism continue on 75 g by mouth daily PT consult Chemical anticoagulation contraindicated with recent GIB- 08/12 wants active treatment at this time for Sepsis ADD: discuss with family Hospice consult- - Hospice care center candidate Pt Condition on Discharge: Guarded Discharge Disposition: Hospice/Med Facility Discharge Time: > 30 minutes Discharge Instructions DIET: Follow Instructions for: Nothing By Mouth Additional Diet Instructions: May be changed by hospice attending physician Activities you can perform: See Additionl Instruction Other Activity Instructions: Per hospice attending physician Jose Hawk MD September 19, 2016 15:20
== END 2016-08-22 22:14 | disposition hospice, inpatient (51) | DRG 871 ==
LOC: NEPE 12:47 → NEDA 15:20 → HCIS 16:58 → OBSVTOIN 08-19 11:21
PROVIDERS: ADMIT Internal Medicine; ATTEND Internal Medicine
PROC: 0W9G3ZZ Drainage of Peritoneal Cavity, Percutaneous Approach (ICD-10-PCS; principal; 2016-08-19)
PROC: 30253P1 (ICD-10-PCS; 2016-08-19)
DX: A41.50 Gram-negative sepsis, unspecified (principal); J18.9 Pneumonia, unspecified organism; J90 Pleural effusion, not elsewhere classified; K65.2 Spontaneous bacterial peritonitis; R18.0 Malignant ascites; N17.9 Acute kidney failure, unspecified; E87.70 Fluid overload, unspecified; K92.2 Gastrointestinal hemorrhage, unspecified; K72.90 Hepatic failure, unspecified without coma; K83.1 Obstruction of bile duct; B96.20 Unspecified Escherichia coli [E. coli] as the cause of diseases classified elsewhere; D50.0 Iron deficiency anemia secondary to blood loss (chronic); D63.8 Anemia in other chronic diseases classified elsewhere; E03.9 Hypothyroidism, unspecified; G89.29 Other chronic pain; K21.9 Gastro-esophageal reflux disease without esophagitis; T40.605A Adverse effect of unspecified narcotics, initial encounter; K59.00 Constipation, unspecified; Z51.5 Encounter for palliative care; Z87.891 Personal history of nicotine dependence; Z92.21 Personal history of antineoplastic chemotherapy; Z92.3 Personal history of irradiation; Z96.653 Presence of artificial knee joint, bilateral; Z85.07 Personal history of malignant neoplasm of pancreas
CPT/HCPCS: 36430; 49083; 71010; 74177; 80048; 80053; 83605; 83615; 83690; 83986; 84157; 85007; 85025; 85027; 85384; 85610; 85730; 86301; 86850; 86900; 86901; 86920; 87040; 87070; 87077; 87186; 87205; 89051; 93005; C9113; G0378; J0696; J1940; J1956; P9016; P9047; Q9967